=== PATIENT | female | born 1935 | race Two or more races ===

== ENCOUNTER 2019-06-09 07:45 | Inpatient (IN) | payer OTHER | END 2019-06-11 19:39 | disposition home or self-care (01) | LOC: ER 07:45 → TELE 07:46 → TELE-WESTW 11:48 | DX: R00.0 Tachycardia, unspecified (principal); N39.0 Urinary tract infection, site not specified; R53.1 Weakness; E11.9 Type 2 diabetes mellitus without complications; E78.5 Hyperlipidemia, unspecified ==

== ENCOUNTER → 2023-02-10 | Outpatient (CLI) | payer OTHER ==
[~2023-02-10] MED LIST: ASCO500T11 PO; ASPI-543 PO; CHOL20007 PO; CYAN100T7 PO; LISI2.5T47; METF-372; MULTLIQ36 OR; SIMV40TA2 PO
[2023-02-10 09:19] LABS: Basophils # (auto) 0.1 10 ^3/uL (0-0.2); Basophils % (auto) 0.9 % (0.0-2.0); Eosinophils # (auto) 0.3 10 ^3/uL (0-0.8); Hematocrit 37.5 % (36.0-46.0); Hemoglobin 12.3 g/dL (12.2-16.2); Lymphocytes # (auto) 2.3 10 ^3/uL (0.4-5.4); Lymphocytes % (auto) 41.4 % (10.0-50.0); Mean Corpuscular Hemoglobin 30.3 pg (28.0-32.0); Mean Corpuscular Hgb Conc. 32.9 g/dL (32.0-36.0); Mean Corpuscular Volume 92.1 fL (80.0-100.0); Monocytes # (auto) 0.4 10 ^3/uL (0-1.3); Monocytes % (auto) 6.7 % (0.0-12.0); Neutrophils # (auto) 2.6 10 ^3/uL (1.6-8.6); Nucleated Red Blood Cells % 0.1 %; Red Blood Cells 4.07 10^6/uL (4.0-5.20); Red Cell Distribution Width 14.7 % (11.8-14.3); White Blood Cell 5.6 10^3/uL (4.4-10.8)
[2023-02-10 09:25] LABS: Urine Bacteria NONE SEEN /hpf (None Seen); Urine Blood Negative /uL (Negative); Urine Specific Gravity 1.003 (1.001-1.035); Urine WBC <1 /hpf (0 - 5)
[2023-02-10 10:23] LABS: Albumin 4.3 g/dL (3.4-5.0); BUN/Creatinine Ratio 25.4 (10.0-20.0); Bilirubin, Total 0.4 mg/dL (0.2-1.0); Calcium 9.6 mg/dL (8.5-10.1); Total Protein 7.7 g/dL (6.4-8.2)
[2023-02-10 10:51] LABS: % Iron Saturation 21.8 % (15-50)
== END | disposition home or self-care (01) ==
LOC: LAB 08:52
PROVIDERS: ATTEND Family Medicine
DX: Z00.00 Encounter for general adult medical examination without abnormal findings (principal); E11.9 Type 2 diabetes mellitus without complications; N64.4 Mastodynia; M15.9 Polyosteoarthritis, unspecified
CPT/HCPCS: 36415; 80053; 80061; 81001; 82306; 82607; 83036; 83540; 83550; 84443; 84550; 85025; 87086

== ENCOUNTER → 2023-11-03 | Outpatient (CLI) | payer OTHER ==
[~2023-11-03] MED LIST changes: -SIMV40TA2 PO; +SIMV40TA42 PO
[2023-11-03 10:34] LABS: Basophils # (auto) 0 10 ^3/uL (0-0.2); Basophils % (auto) 0.5 % (0.0-2.0); Eosinophils # (auto) 0.3 10 ^3/uL (0-0.8); Eosinophils % (auto) 4.1 % (0.0-7.0); Hematocrit 36.2 % (36.0-46.0); Hemoglobin 12.1 g/dL (12.2-16.2); Lymphocytes # (auto) 1.9 10 ^3/uL (0.4-5.4); Lymphocytes % (auto) 30.6 % (10.0-50.0); Mean Corpuscular Hemoglobin 30.5 pg (28.0-32.0); Mean Corpuscular Hgb Conc. 33.5 g/dL (32.0-36.0); Mean Corpuscular Volume 91.1 fL (80.0-100.0); Monocytes # (auto) 0.5 10 ^3/uL (0-1.3); Monocytes % (auto) 7.4 % (0.0-12.0); Neutrophils # (auto) 3.6 10 ^3/uL (1.6-8.6); Neutrophils % (auto) 57.4 % (37.0-80.0); Red Blood Cells 3.97 10^6/uL (4.0-5.20); Red Cell Distribution Width 15.3 % (11.8-14.3); White Blood Cell 6.4 10^3/uL (4.4-10.8)
[2023-11-03 10:53] LABS: Urine Bacteria NONE SEEN /hpf (None Seen); Urine Blood Negative /uL (Negative); Urine Clarity Clear (Clear); Urine Color Straw (Yellow); Urine Protein, UAD Negative (Negative); Urine Specific Gravity 1.014 (1.001-1.035); Urine Urobilinogen Normal (Negative); Urine WBC 2 /hpf (0 - 5); Urine pH 5.5 (5.0-8.0)
[2023-11-03 10:59] LABS: Alanine Aminotransferase 17 U/L (7-40); Alkaline Phosphatase 54 U/L (46-116); Anion Gap 7 (5-15); BUN/Creatinine Ratio 14.3 (10.0-20.0); Blood Urea Nitrogen 11 mg/dL (9-23); Calcium 10.2 mg/dL (8.5-10.1); Carbon Dioxide 25 mmol/L (20-30); Chloride 103 mmol/L (98-107); Glucose 114 mg/dL (74-106); Potassium 4.4 mmol/L (3.5-5.1); Sodium 135 mmol/L (136-145); Triglycerides 302 mg/dL (< 150)
[2023-11-03 11:00] LABS: Albumin 4.8 g/dL (3.2-4.8); Aspartate Aminotransferase 22 U/L (13-40); LDL Cholesterol 114 mg/dL (< 100)
[2023-11-03 11:01] LABS: Bilirubin, Total 0.5 mg/dL (0.2-1.0); Cholesterol 200 mg/dL (< 200); Free T3 3.06 pg/mL (2.3-4.2); HDL Cholesterol 45 mg/dL (40-59); Total Protein 7.4 g/dL (5.7-8.2)
[2023-11-03 11:02] LABS: Folate (Folic Acid) > 24.00 ng/mL (>5.38); Free T4 (Free Thyroxine) 0.99 ng/dL (0.89-1.76); T3 Total 1.28 ng/mL (0.60-1.81)
[2023-11-03 11:17] LABS: Uric Acid 4.7 mg/dL (3.1-7.8)
[2023-11-03 12:41] LABS: % Iron Saturation 19.2 % (15-50)
== END | disposition home or self-care (01) ==
LOC: LAB 09:47
PROVIDERS: ATTEND Nurse Practitioner Acute Care
DX: E11.43 Type 2 diabetes mellitus with diabetic autonomic (poly)neuropathy (principal); I10 Essential (primary) hypertension; E11.9 Type 2 diabetes mellitus without complications; E78.2 Mixed hyperlipidemia; R23.8 Other skin changes
CPT/HCPCS: 36415; 80053; 80061; 81001; 82306; 82607; 82746; 83036; 83540; 83550; 84403; 84439; 84480; 84481; 84550; 85025

== ENCOUNTER → 2024-05-02 | Outpatient (CLI) | payer OTHER ==
[2024-05-02 08:36] LABS: Urine Bacteria FEW /hpf (None Seen); Urine Blood Negative /uL (Negative); Urine Clarity Clear (Clear); Urine Protein, UAD Negative (Negative); Urine Urobilinogen Normal (Negative); Urine WBC 2 /hpf (0 - 5)
[2024-05-02 08:38] LABS: Urine Color Light-Yellow (Yellow)
[2024-05-02 09:10] LABS: Anion Gap 8 (5-15); Carbon Dioxide 26 mmol/L (20-30); Chloride 100 mmol/L (98-107); Potassium 4.8 mmol/L (3.5-5.1); Sodium 134 mmol/L (136-145)
[2024-05-02 09:11] LABS: Calcium 9.6 mg/dL (8.7-10.4)
[2024-05-02 09:16] LABS: BUN/Creatinine Ratio 18.5 (10.0-20.0); Blood Urea Nitrogen 15 mg/dL (9-23); Glucose 129 mg/dL (74-106); Triglycerides 253 mg/dL (< 150)
[2024-05-02 09:17] LABS: LDL Cholesterol 36 mg/dL (< 100)
[2024-05-02 09:18] LABS: Cholesterol 102 mg/dL (< 200); HDL Cholesterol 37 mg/dL (40-59)
== END | disposition home or self-care (01) ==
LOC: LAB 08:14
PROVIDERS: ATTEND Family Medicine
DX: I10 Essential (primary) hypertension (principal); E11.9 Type 2 diabetes mellitus without complications; R39.89 Other symptoms and signs involving the genitourinary system
CPT/HCPCS: 36415; 80048; 80061; 81001; 83036; 87086

== ENCOUNTER → 2024-05-23 | Outpatient (CLI) | payer OTHER ==
[2024-05-23 12:39] LABS: Urine Bacteria None Seen /hpf (None Seen)
[2024-05-23 12:48] LABS: Urine Blood Negative /uL (Negative); Urine Clarity Clear (Clear); Urine Color Light-Yellow (Yellow); Urine Protein, UAD Negative (Negative); Urine Specific Gravity 1.027 (1.001-1.035); Urine Urobilinogen Normal (Negative); Urine WBC 71 /hpf (0 - 5); Urine pH 5.5 (5.0-9.0)
== END | disposition home or self-care (01) ==
LOC: LAB 12:28
PROVIDERS: ATTEND Urology
DX: N34.1 Nonspecific urethritis (principal)
CPT/HCPCS: 81001; 87086

== ENCOUNTER → 2024-10-04 | Outpatient (CLI) | payer OTHER ==
[2024-10-04 11:53] LABS: Basophils # (auto) 0.1 10 ^3/uL (0-0.2); Basophils % (auto) 0.8 % (0.0-2.0); Eosinophils # (auto) 0.5 10 ^3/uL (0-0.8); Eosinophils % (auto) 6.2 % (0.0-7.0); Hematocrit 38.5 % (36.0-46.0); Hemoglobin 12.9 g/dL (12.2-16.2); Lymphocytes # (auto) 2.8 10 ^3/uL (0.4-5.4); Lymphocytes % (auto) 36.5 % (10.0-50.0); Mean Corpuscular Hemoglobin 30.9 pg (28.0-32.0); Mean Corpuscular Hgb Conc. 33.4 g/dL (32.0-36.0); Mean Corpuscular Volume 92.5 fL (80.0-100.0); Monocytes # (auto) 0.4 10 ^3/uL (0-1.3); Monocytes % (auto) 5.7 % (0.0-12.0); Neutrophils # (auto) 3.9 10 ^3/uL (1.6-8.6); Neutrophils % (auto) 50.8 % (37.0-80.0); Platelet Count (auto) 229 10^3/uL (140-450); Red Blood Cells 4.16 10^6/uL (4.0-5.20); Red Cell Distribution Width 14.6 % (11.8-14.3); White Blood Cell 7.7 10^3/uL (4.4-10.8)
[2024-10-04 12:15] LABS: Alanine Aminotransferase 20 U/L (7-40); Alkaline Phosphatase 47 U/L (46-116); Anion Gap 7 (5-15); BUN/Creatinine Ratio 25.6 (10.0-20.0); Blood Urea Nitrogen 21 mg/dL (9-23); Carbon Dioxide 26 mmol/L (20-31); Chloride 103 mmol/L (98-107); Potassium 4.9 mmol/L (3.5-5.1); Sodium 136 mmol/L (136-145)
[2024-10-04 12:16] LABS: LDL Cholesterol 30 mg/dL (< 100)
[2024-10-04 12:17] LABS: Bilirubin, Total 0.5 mg/dL (0.2-1.0); Cholesterol 97 mg/dL (< 200); HDL Cholesterol 45 mg/dL (40-59); Total Protein 7.5 g/dL (5.7-8.2)
[2024-10-04 12:25] LABS: Aspartate Aminotransferase 11 U/L (13-40); Calcium 10.6 mg/dL (8.7-10.4); Glucose 110 mg/dL (74-106); Triglycerides 169 mg/dL (< 150)
[2024-10-04 12:57] LABS: Folate (Folic Acid) 26.16 ng/mL (>5.38)
[2024-10-06 13:09] LABS: Urine Bacteria None Seen /hpf (None Seen)
[2024-10-06 13:18] LABS: Urine Blood Negative /uL (Negative); Urine Clarity Clear (Clear); Urine Color Light-Yellow (Yellow); Urine Protein, UAD Negative (Negative); Urine Specific Gravity 1.026 (1.001-1.035); Urine Squamous Epithelial Cell FEW /hpf (<5); Urine Urobilinogen Normal (Negative); Urine WBC 2 /hpf (0 - 5)
== END | disposition home or self-care (01) ==
LOC: LAB 11:04
PROVIDERS: ATTEND Internal Medicine
DX: E61.2 Magnesium deficiency (principal); E79.0 Hyperuricemia without signs of inflammatory arthritis and tophaceous disease; D51.9 Vitamin B12 deficiency anemia, unspecified; E55.9 Vitamin D deficiency, unspecified; E78.9 Disorder of lipoprotein metabolism, unspecified; R94.6 Abnormal results of thyroid function studies; R73.09 Other abnormal glucose; R68.89 Other general symptoms and signs; R82.91 Other chromoabnormalities of urine; R82.79 Other abnormal findings on microbiological examination of urine; R82.90 Unspecified abnormal findings in urine
CPT/HCPCS: 36415; 80053; 80061; 81001; 82306; 82607; 82746; 83036; 84443; 84484; 85025; 87086

== ENCOUNTER → 2025-01-31 | Outpatient (CLI) | payer OTHER ==
[2025-01-31 07:29] LABS: Basophils # (auto) 0.1 10 ^3/uL (0-0.2); Basophils % (auto) 0.7 % (0.0-2.0); Eosinophils # (auto) 0.6 10 ^3/uL (0-0.8); Eosinophils % (auto) 7.4 % (0.0-7.0); Hematocrit 36.8 % (36.0-46.0); Hemoglobin 12.1 g/dL (12.2-16.2); Lymphocytes # (auto) 2.2 10 ^3/uL (0.4-5.4); Lymphocytes % (auto) 29.4 % (10.0-50.0); Mean Corpuscular Hemoglobin 29.9 pg (28.0-32.0); Mean Corpuscular Volume 90.7 fL (80.0-100.0); Monocytes # (auto) 0.6 10 ^3/uL (0-1.3); Monocytes % (auto) 8.4 % (0.0-12.0); Neutrophils # (auto) 4.1 10 ^3/uL (1.6-8.6); Neutrophils % (auto) 54.1 % (37.0-80.0); Nucleated Red Blood Cells % 0.1 %; Platelet Count (auto) 232 10^3/uL (140-450); Red Blood Cells 4.06 10^6/uL (4.0-5.20); Red Cell Distribution Width 14.8 % (11.8-14.3); White Blood Cell 7.5 10^3/uL (4.4-10.8)
[2025-01-31 07:43] LABS: Urine Blood Negative /uL (Negative); Urine Clarity Turbid (Clear); Urine Color Colorless (Yellow); Urine Protein, UAD TRACE (Negative); Urine Specific Gravity 1.016 (1.001-1.035); Urine Urobilinogen Normal (Negative); Urine pH 5.5 (5.0-9.0)
[2025-01-31 08:02] LABS: Alanine Aminotransferase 22 U/L (7-40); Anion Gap 8 (5-15); Aspartate Aminotransferase 16 U/L (13-40); Bilirubin, Total 0.5 mg/dL (0.2-1.0); Carbon Dioxide 26 mmol/L (20-31); Chloride 100 mmol/L (98-107); Cholesterol 118 mg/dL (< 200); LDL Cholesterol 46 mg/dL (< 100); Potassium 5.1 mmol/L (3.5-5.1); Total Protein 7.3 g/dL (5.7-8.2)
[2025-01-31 08:04] LABS: Albumin 4.9 g/dL (3.2-4.8); Alkaline Phosphatase 46 U/L (46-116); Blood Urea Nitrogen 27 mg/dL (9-23); Calcium 10.5 mg/dL (8.7-10.4); Glucose 128 mg/dL (74-106); HDL Cholesterol 39 mg/dL (40-59); Sodium 134 mmol/L (136-145); Triglycerides 235 mg/dL (< 150)
[2025-01-31 08:38] LABS: Uric Acid 5.4 mg/dL (3.1-7.8)
== END | disposition home or self-care (01) ==
LOC: LAB 07:09
PROVIDERS: ATTEND Internal Medicine
DX: I12.9 Hypertensive chronic kidney disease with stage 1 through stage 4 chronic kidney disease, or unspecified chronic kidney disease (principal); E11.22 Type 2 diabetes mellitus with diabetic chronic kidney disease; N18.31 Chronic kidney disease, stage 3a; G89.29 Other chronic pain
CPT/HCPCS: 36415; 80053; 80061; 81003; 82306; 82607; 83036; 83735; 84443; 84550; 85025; 87086

== ENCOUNTER 2025-05-10 19:49 | Inpatient (IN) | payer OTHER ==
[~2025-05-10] VITALS: Ht 162.6 cm; Wt 55.8 kg
[2025-05-10] MEDS ORDERED: ROCURONIUM 10MG/ML 10ML VIAL IV ONE (20:00)
[2025-05-10] MEDS: ALBUTEROL SULF 2.5 MG/0.5ML(0.5%) NEB SOLN NEB ONE ×2 (20:00→21:17)
[2025-05-10] MEDS: ETOMIDATE (2MG/ML) 20ML VIAL IV ONE ×2 (20:12→20:20)
[2025-05-10] MEDS ORDERED: PROPOFOL 100 ML IV SCH (20:15)
[2025-05-10] MEDS ORDERED: SUCCINYLCHOLINE CHLORIDE 20 MG/ML 10ML VIAL IV ONE (20:15)
--- NOTE | 2025-05-10 20:17 | ED.PDOC ---
HPI Allergic reaction HPI Comments 89-year-old female with a history of UTIs, diabetes, and hyperlipidemia who is brought in by emergency services with a chief reaction of a allergic reaction, with the associated angioedema, and respiratory distress. Patient's symptoms started 30 minutes before arrival to the ED with she had took her UTI antibiot ics, known as cefuroxime Patient is noted to be alert and oriented x4, but is struggling to respond to questions due to tongue swelling, and is currently set at on 4 L O2. Emergency services notes on administering 25 mg of Benadryl IV, with no alleviating factors. Patient denies any pain, nausea, vomiting, diarrhea, headache, blurry vision, or any other associated symptoms modifying was at this time. PHYSICAL EXAM: General: Awake, alert and oriented. No acute distress. Skin: Skin in warm, dry and intact. Appropriate color for ethnicity. HEENT: The head is normocephalic and atraumatic. Conjunctivae are clear without exudates or hemorrhage. Sclera is non-icteric. EOM are intact. No signs of nystagmus. Eyelids are normal in appearance without swelling or lesions. + Tongue swelling. Neck: The neck is supple with normal range of motion. No JVD. Cardiac: Rapid rate, regular rhythm normal. No murmurs, gallops, or rubs are auscultated. Respiratory: No wheeezing or rhonci. No stridor. +tachypnea Abdominal: Abdomen is soft, non-tender without distention, guarding or rigidity. Bowel sounds are present and normoactive in all four quadrants. Extremities: Upper and lower extremities are atraumatic in appearance without deformity or edema. Neurological: The patient is awake, alert and oriented to person, place, and time with normal speech. Speech is clear. There is no facial asymmetry. Skin: hives and swelling of upper and lower extremities REVIEW OF SYSTEMS: General: No fever, no chills, or fatigue HEENT: + difficulty swallowing & tongue swelling Cardiac: No chest pain. No palpitations. Lungs: + shortness of breath, no cough. GI: No nausea, no vomiting, no diarrhea, no constipation, no abdominal pain : No dysuria, frequency, or urgency. No hematuria. Musculoskeletal: No joint pain , no joint swelling, no extremity edema. Skin: + rash, + itching. Neuro: No headache, no dizziness, no weakness Time Seen by MD: 20:10 Primary Care Provider: SEBASTIEN Moya Notes: Nurses Notes, Manager Utilization Review Notes, Medications, Allergies Allergies: Coded Allergies: Nitrofurantoin (Verified Allergy, Unknown, 12/24/23) Home Meds Reported Medications Ascorbic Acid (VITAMIN C TABLET) 500 Mg Tb, 1 TAB PO DAILY, #30 TAB 3 Refills 06/09/19 Cyanocobalamin (Vitamin B12) 100 Mcg Tab, 100 MCG PO, TAB 06/09/19 Cholecalciferol (VITAMIN D3) 2,000 Unit Tab, 1 TAB PO DAILY, #30 TAB 5 Refills 06/09/19 Multiple Vitamins W/ Minerals (MULTIVITAMIN) Liq, 1 OR, LIQ 06/09/19 Aspirin (Aspir-Low) 81 Mg Tab, 81 MG PO DAILY for 30 Days, MG 06/09/19 Simvastatin (Zocor) 40 Mg Tab, 1 TAB PO DAILY, #90 TAB 1 Refill 06/09/19 Lisinopril (Lisinopril) 2.5 Mg Tab 06/09/19 Metformin Hydrochloride (Metformin Hcl) 1,000 Mg Tab 06/09/19 Information Source: Patient, Emergency Med Personnel Mode of Arrival: EMS Severity: Severe Rash: Mild SOB: Moderate Difficulty swallowing: Severe Pruritus: Mild Timing: Minutes Duration: Since onset, Minutes Prehospital treatment: 12 Lead EKG, Accucheck, Breathing Tx, Design Leader, Oxygen, Pain Meds Location: Face Exposed to: Medication Developed: Difficult Swallowing, Shortness of Breath, Throat Swelliing History of: None Modyifying Factors: None Associated Sign and Symptoms: None Past Medical History PAST MEDICAL HISTORY: DM, High Lipids, UTI'S Surgical History: Denies all surgeries PROTOTYPE SEWER History: Denies all PROTOTYPE SEWER Hx Family History Family History: Reviewed,noncontributory to illness Social History Smoker: Non-Smoker Alcohol: Denies ETOH Use Drugs: Denies Drug Use Lives In: Home Was a procedure done? 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 Indication: Hypotension Room prepared for procedure: Yes Set Up Operator Tool performed hand hygien: Yes Maximal sterile barrier precau: Mask/Eye shield, Sterile gown, Cap, Sterlie gloves, Large sterlie drape Skin Preparation: Chlorhexidine gluconate Skin preparation completely dr: Yes Insertion site: Right, Internal jugular Central line catheter type: Xpu-[id number]-bcb dialysis Number of lumens: 3 Central line exchanged over a: Yes Antiseptic ointment applied to: Yes Post Assessment: Proper placement, No Pneumothorax Informed consent obtained: Yes Risks/benefits/alt described: Yes Intubation Indication: Respiratory Insufficiency, Airway Protection Prep: Preoxygenation Pretreated with: Nothing Medicated with: Other (100 mg of rock, 30 mg of etomidate) Intubation Approach: Orotracheal Intubation size: cm (6.5 cm) Informed consent obtained: Yes Risks/benefits/alt described: Yes UTO Consent Consent was obtained by . Differential diagnosis (all) Differential Diagnosis: Anaphylaxis, Bronchospasm, Drug Reaction, Hypotension, Respiratory Failure, Shock X-Ray, Labs, Meds, VS Vital Signs Date Time Temp Pulse Resp B/P (MAP) Pulse Ox O2 Delivery O2 Flow Rate FiO2 05/10/25 22:15 79 20 94/41 (58) 100 05/10/25 22:05 81/34 05/10/25 22:04 72 16 97 05/10/25 22:00 79 20 80/32 (48) 100 05/10/25 22:00 80/32 05/10/25 21:45 71 20 69/25 (40) 99 05/10/25 21:30 100 Mechanical Ventilator+ 100 100 05/10/25 21:30 72 15 69/28 (42) 99 05/10/25 21:22 71 16 78/33 (48) 96 05/10/25 21:13 16 83/36 (52) 97 100 05/10/25 21:13 72 83/36 (52) 97 100 05/10/25 21:05 163/58 05/10/25 21:05 163/58 05/10/25 21:05 91 14 163/58 (93) 99 05/10/25 21:01 90 05/10/25 20:55 162/68 05/10/25 20:50 109 20 162/68 (99) 86 05/10/25 20:50 162/68 05/10/25 20:45 162/68 05/10/25 20:45 109 20 162/68 (99) 86 05/10/25 20:30 102 14 154/76 (102) 98 05/10/25 20:26 98.2 140 20 107/69 95 98.2 05/10/25 20:25 117 21 143/74 (97) 98 05/10/25 20:21 143/74 05/10/25 20:15 129 21 133/67 (89) 96 05/10/25 20:05 124 21 143/90 (107) 97 Lab Test 05/10/25 21:15 05/10/25 20:29 Range/Units Blood Gas Specimen Type Arterial Blood Gas Sample Site Right radial Blood Gas Patient Temperature 37.0 Arterial Blood Date Drawn [id number] Arterial Blood pH 7.200 *L 7.350-7.450 Arterial Blood Partial Pressure CO2 46.7 H 32.0-45.0 mmHg Arterial Blood Partial Pressure O2 94.8 83.0-108.0 mmHg Arterial Blood HCO3 17.8 L 21.0-28.0 mmol/L Arterial Blood Oxygen Saturation 94.7 94.0-98.0 % Arterial Blood Base Excess -9.9 L -2.0-3.0 mmol/L Arterial Blood Oxyhemoglobin 93.6 L 94.0-98.0 % Arterial Blood Carboxyhemoglobin 0.4 L 0.5-1.5 % Arterial Blood Methemoglobin 0.8 0.0-1.5 % Laron Test Positive Blood Gas Total Hemoglobin 11.60 L 12.0-16.0 g/dL Blood Gas Set Respiration Rate 16.0 Blood Gas Modality Vent - ac FiO2 % 100.0 Blood Gas Tidal Volume 400.0 Blood Gas PEEP or CPAP 5.0 Blood Gas Critical Value Read Back yes Blood Gas Notified Whom jocelyne Horner md Blood Gas Notified Time [id number] Blood Gas Notified By Floyd zavala White Blood Count 14.8 H 4.4-10.8 10^3/uL Red Blood Count 4.26 4.0-5.20 10^6/uL Hemoglobin 12.9 12.2-16.2 g/dL Hematocrit 40.2 36.0-46.0 % Mean Corpuscular Volume 94.4 80.0-100.0 fL Mean Corpuscular Hemoglobin 30.2 28.0-32.0 pg Mean Corpuscular Hemoglobin Concent 32.0 32.0-36.0 g/dL Red Cell Distribution Width 15.4 H 11.8-14.3 % Platelet Count 348 140-450 10^3/uL Mean Platelet Volume 7.5 6.9-10.8 fL Neutrophils (%) (Auto) 37.0-80.0 % Lymphocytes (%) (Auto) 10.0-50.0 % Monocytes (%) (Auto) 0.0-12.0 % Basophils (%) (Auto) 0.0-2.0 % Neutrophils # (Auto) 1.6-8.6 10 ^3/uL Lymphocytes # (Auto) 0.4-5.4 10 ^3/uL Monocytes # (Auto) 0-1.3 10 ^3/uL Differential Total Cells Counted 100.0 100 Neutrophils % (Manual) 30 L 37.0-80.0 Band Neutrophils % (Manual) 1 Lymphocytes % (Manual) 60 H 10.0-50.0 Monocytes % (Manual) 9 0-12 Eosinophils % (Manual) 0 0-7 Basophils % (Manual) 0 0.0-2.0 Metamyelocytes % (manual) 0 Myelocytes % (Manual) 0 Promyelocytes % (Manual) 0 Blast Cells % (Manual) 0 Reactive Lymphocytes 0 Platelet Estimate Adequate Red Blood Cell Morphology Normal Sodium Level 138 136-145 mmol/L Potassium Level 4.8 3.5-5.1 mmol/L Chloride Level 105 98-107 mmol/L Carbon Dioxide Level 21 20-31 mmol/L Anion Gap 12 5-15 Blood Urea Nitrogen 16 9-23 mg/dL Creatinine 1.03 H 0.550-1.02 mg/dL Glomerular Filtration Rate Calc 52 >90 mL/min BUN/Creatinine Ratio 15.5 10.0-20.0 Serum Glucose 237 H 74-106 mg/dL Hemoglobin A1c 7.3 H <5.7 % A1C Calcium Level 8.8 8.7-10.4 mg/dL B-Type Natriuretic Peptide 18.11 0-100 pg/mL Current Medications Medications (Trade) Dose Ordered Sig/Jonathan Route Start Time Stop Time Status Last Admin Dexamethasone Sodium Phosphate (Decadron Injection) 10 mg ONCE ONCE IV 05/10/25 20:00 05/10/25 20:01 DC 05/10/25 20:00 Epinephrine HCl 0.3 mg ONCE ONCE IM 05/10/25 20:00 05/10/25 20:01 DC 05/10/25 20:00 Famotidine (Pepcid Injection) 20 mg ONCE ONCE IV 05/10/25 20:00 05/10/25 20:01 DC 05/10/25 21:21 Albuterol (Ventolin Medneb) 2.5 mg ONCE ONCE NEB 05/10/25 20:00 05/10/25 20:01 DC 05/10/25 21:17 Etomidate 20 mg ONCE ONCE IV 05/10/25 20:00 05/10/25 20:01 DC 05/10/25 20:12 Rocuronium Lee 100 mg ONCE ONCE IV 05/10/25 20:15 05/10/25 20:16 DC 05/10/25 20:21 Etomidate 10 mg ONCE ONCE IV 05/10/25 20:30 05/10/25 20:31 DC 05/10/25 20:20 Sodium Chloride 1,000 ml @ 1,000 mls/hr Q1H ONCE IV 05/10/25 20:45 05/10/25 21:44 DC 05/10/25 20:47 Propofol 100 ml @ 2.177 mls/ hr Q24H IV 05/10/25 20:45 05/10/25 20:45 Fentanyl Citrate 250 ml @ 2.5 mls/hr Q24H IV 05/10/25 21:00 05/10/25 20:50 Sodium Chloride 1,000 ml @ 1,000 mls/hr Q1H ONCE IV 05/10/25 21:00 05/10/25 21:59 DC 05/10/25 21:52 Ondansetron HCl (Zofran) 4 mg ONCE ONCE IV 05/10/25 21:00 05/10/25 21:01 DC 05/10/25 21:00 Methylprednisolone Sodium Succinate (Solu Medrol) 62.5 mg ONCE ONCE IV 05/10/25 21:15 05/10/25 21:16 DC 05/10/25 21:22 Epinephrine HCl 0.3 mg ONCE ONCE IM 05/10/25 21:15 05/10/25 21:16 DC 05/10/25 21:19 Diphenhydramine HCl (Benadryl Injection) 25 mg ONCE ONCE IV 05/10/25 21:15 05/10/25 21:16 DC 05/10/25 21:21 Midazolam HCl 50 ml @ 1 mls/hr Q24H IV 05/10/25 22:00 05/11/25 01:54 Epinephrine HCl 250 ml @ 7.5 mls/hr Q24H ONCE IV 05/10/25 22:00 05/11/25 21:59 05/10/25 22:45 PATIENT: ADRIAN BAH ACCT: [id number] UNIT: [id number] : 1935 LOC: ER ROOM / BED: / AGE / SEX: 89 / F ADM STATUS: REG ER SERVICE 31 ORDERING PHYSICIAN: JOCELYNE HORNER MD PROCEDURE(s): CXR1 - CHEST XRAY 1 VIEW REASON: ett placement ORDER NUMBER(s): [id number], ACCESSION NUMBER(s): [id number] CHEST RADIOGRAPH Indication: ett placement Technique: Single frontal view of the chest was obtained Comparison: XY CHEST XRAY 1 VIEW on DOS: 12/24/23 FINDINGS: Lines and Tubes: Endotracheal tube appears to be in the right mainstem bronchus recommend withdrawal 1-2 cm. Lungs: No focal consolidation. Pleura: No effusion. No pneumothorax. Cardiomediastinal contours: Unremarkable Bones: No acute osseous abnormality. IMPRESSION: 1. Cardiomegaly and mild pulmonary vascular markings may represent congestive failure. 2. Endotracheal tube is in the right mainstem bronchus recommend withdrawal 2-3 cm. Time of 1ST Reevaluation: 08:41 Reevaluation 1ST: Unchanged Patient Education/Counseling: Diagnosis, Treatment, Need For Follow Up Family Education/Counseling: No Family Present SEPSIS Sepsis Screen Physician Orders Rass Sedation Scale Q1HR (05/10/25 20:12) Communication Order (05/10/25 20:25) Abg W/ Co-Ox (05/10/25 20:30) Respiratory Culture W/ Gs (05/10/25 20:30) Chest Xray 1 View (05/10/25 20:32) Propofol (Diprivan) (05/10/25 20:45) Fentanyl Drip 2500mcg/250mlns (05/10/25 21:00) Communication Order (05/10/25 20:50) Chest Xray 1 View (05/10/25 20:52) Communication Order (05/10/25 20:54) Communication Order (05/10/25 21:05) Communication Order (05/10/25 21:43) Midazolam Drip 50 Mg/50ml (Versed Drip 5 (05/10/25 22:00) Communication Order (05/10/25 21:49) Epinephrine Hcl (05/10/25 22:00) Ventilator Setup (05/10/25 22:22) Vital Signs Date Time Temp Pulse Resp B/P (MAP) Pulse Ox O2 Delivery O2 Flow Rate FiO2 05/10/25 22:15 79 20 94/41 (58) 100 05/10/25 22:05 81/34 05/10/25 22:04 72 16 97 05/10/25 22:00 79 20 80/32 (48) 100 05/10/25 22:00 80/32 05/10/25 21:45 71 20 69/25 (40) 99 05/10/25 21:30 100 Mechanical Ventilator+ 100 100 05/10/25 21:30 72 15 69/28 (42) 99 05/10/25 21:22 71 16 78/33 (48) 96 05/10/25 21:13 16 83/36 (52) 97 100 05/10/25 21:13 72 83/36 (52) 97 100 05/10/25 21:05 163/58 05/10/25 21:05 163/58 05/10/25 21:05 91 14 163/58 (93) 99 05/10/25 21:01 90 05/10/25 20:55 162/68 05/10/25 20:50 109 20 162/68 (99) 86 05/10/25 20:50 162/68 05/10/25 20:45 162/68 05/10/25 20:45 109 20 162/68 (99) 86 05/10/25 20:30 102 14 154/76 (102) 98 05/10/25 20:26 98.2 140 20 107/69 95 98.2 05/10/25 20:25 117 21 143/74 (97) 98 05/10/25 20:21 143/74 05/10/25 20:15 129 21 133/67 (89) 96 05/10/25 20:05 124 21 143/90 (107) 97 Laboratory Tests Test 05/10/25 20:29 White Blood Count 14.8 10^3/uL (4.4-10.8) H Medications Medications Dose Ordered Sig/Jonathan Route Start Time Stop Time Status Last Admin Dose Admin Albuterol 2.5 mg ONCE ONCE NEB 05/10/25 20:00 05/10/25 20:01 DC 05/10/25 21:17 Dexamethasone Sodium Phosphate 10 mg ONCE ONCE IV 05/10/25 20:00 05/10/25 20:01 MD 05/10/25 20:00 Diphenhydramine HCl 25 mg ONCE ONCE IV 05/10/25 21:15 05/10/25 21:16 DC 05/10/25 21:21 Epinephrine HCl 0.3 mg ONCE ONCE IM 05/10/25 20:00 05/10/25 20:01 MD 05/10/25 20:00 Epinephrine HCl 0.3 mg ONCE ONCE IM 05/10/25 21:15 05/10/25 21:16 MD 05/10/25 21:19 Epinephrine HCl 250 ml @ 7.5 mls/hr Q24H ONCE IV 05/10/25 22:00 05/11/25 21:59 05/10/25 22:45 Etomidate 10 mg ONCE ONCE IV 05/10/25 20:30 05/10/25 20:31 MD 05/10/25 20:20 Etomidate 20 mg ONCE ONCE IV 05/10/25 20:00 05/10/25 20:01 MD 05/10/25 20:12 Famotidine 20 mg ONCE ONCE IV 05/10/25 20:00 05/10/25 20:01 MD 05/10/25 21:21 Fentanyl Citrate 250 ml @ 2.5 mls/hr Q24H IV 05/10/25 21:00 05/10/25 20:50 Methylprednisolone Sodium Succinate 62.5 mg ONCE ONCE IV 05/10/25 21:15 05/10/25 21:16 MD 05/10/25 21:22 Midazolam HCl 50 ml @ 1 mls/hr Q24H IV 05/10/25 22:00 05/11/25 01:54 Ondansetron HCl 4 mg ONCE ONCE IV 05/10/25 21:00 05/10/25 21:01 MD 05/10/25 21:00 Propofol 100 ml @ 2.177 mls/ hr Q24H IV 05/10/25 20:45 05/10/25 20:45 Rocuronium Lee 100 mg ONCE ONCE IV 05/10/25 20:15 05/10/25 20:16 DC 05/10/25 20:21 Sodium Chloride 1,000 ml @ 1,000 mls/hr Q1H ONCE IV 05/10/25 20:45 05/10/25 21:44 DC 05/10/25 20:47 Sodium Chloride 1,000 ml @ 1,000 mls/hr Q1H ONCE IV 05/10/25 21:00 05/10/25 21:59 DC 05/10/25 21:52 Departure 1 Departure Time of Disposition: 01:46 Impression: Primary Impression: Anaphylactic shock Disposition: ADMITTED INPATIENT Condition: Critical Comments MDM: 89 year old female with allergic reaction vs angioedema. Patient was given epinephrine and Decadron on arrival to the ED. Emergent intubation was performed due to concern for worsening airway edema. Intubation was difficult due to severe airway edema. Initially 6.5 ETT was placed which was then exchanged over Bougie for 7.0 ETT. Patient became progressively hypotensive. She was started on epinephrine drip for pressure support and central line was placed in the ED. Extensive evaluation was performed in attempt to identify or rule out: (See differential diagnosis section) The following tests were ordered, and results were reviewed by me and discussed with patient: (See diagnostic results section) The following test were independently interpreted by me: N/A I reviewed and agreed with the following test results read by other providers: Chest x-ray I reviewed the following notes from the pt's past medical encounters: N/A Additional information was gathered from interviewing the following independent historians: EMS personnel, patient's daughter at bedside Discussion of management or test interpretation with external physician/other qualified health hospice care sales consultant: Royer Bhagat NP Addressed an acute or chronic illness that poses a threat to life or bodily function: Anaphylactic shock Decision regarding hospitalization or escalation of hospital level of care: Risk and benefits of admission for further treatment of patient's condition was considered. Due to patient's current clinical condition, high risk of decline and poor outcome if discharged and need for further inpatient management and monitoring, patient will be admitted to the hospital. Drug therapy requiring intensive monitoring for toxicity: IM epinephrine IV dexamethasone, IV solumedrol, IV diphenhydramine Parenteral controlled substances: IV etomidate, IV rocuronium, IV propofol, IV versed, IV fentanyl Decision regarding elective major surgery with identified patient or procedure risk factors: N/A Decision regarding emergency major surgery: N/A Decision not to resuscitate or to de-escalate care because of poor prognosis: N/A Diagnosis or treatment significantly limited by social determinants of health: N/A Critical Care Note Critical Care Time?: Yes (90 min-critical care time only) Critical care comment: Due to a high probability of clinically significant, life threatening deterioration, the patient required my highest level of preparedness to intervene emergently and I personally spent this critical care time directly and personally managing the patient. This critical care time included obtaining a history; examining the patient; pulse oximetry; ordering and review of studies; arranging urgent treatment with development of a management plan; evaluation of patient's response to treatment; frequent reassessment; and, discussions with other providers. This critical care time was performed to assess and manage the high probability of imminent, life-threatening deterioration that could result in multi-organ failure. It was exclusive of separately billable procedures and treating other patients and teaching time. Please see my other sections and the rest of the note for further information on patient assessment and treatment. Stability Stability form required: No Heart Score Heart Score: Heart Score Response (Comments) Value History N/A 0 EKG N/A 0 Age N/A 0 Risk Factors N/A 0 Troponin N/A 0 Total 0 I personally scribed for JOCELYNE HORNER MD ([email or web address]) on 05/10/25 at 20:17. Electronically submitted by Hi Gonzalez ([email or web address]). I personally scribed for JOCELYNE HORNER MD ([email or web address]) on 05/10/25 at 20:32. Electronically submitted by Hi Gonzalez ([email or web address]). I personally scribed for JOCELYNE HORNER MD ([email or web address]) on 05/10/25 at 20:56. Electronically submitted by Hi Gonzalez ([email or web address]). I personally scribed for JOCELYNE HORNER MD ([email or web address]) on 05/10/25 at 21:40. Electronically submitted by Hi Gonzalez ([email or web address]). I personally scribed for JOCELYNE HORNER MD ([email or web address]) on 05/10/25 at 21:45. Electronically submitted by Hi Gonzalez ([email or web address]). I personally scribed for JOCELYNE HORNER MD ([email or web address]) on 05/11/25 at 00:24. Electronically submitted by Hi Gonzalez ([email or web address]). JOCELYNE HORNER MD May 10, 2025 20:17
[2025-05-10] MEDS: ROCURONIUM 10MG/ML 10ML VIAL IV ONE (20:21)
[2025-05-10] MEDS: PROPOFOL 100 ML IV ONE (20:27)
[2025-05-10] MEDS: PROPOFOL 100 ML IV SCH (20:45)
[2025-05-10 20:46] LABS: Hematocrit 40.2 % (36.0-46.0); Hemoglobin 12.9 g/dL (12.2-16.2); Mean Corpuscular Hemoglobin 30.2 pg (28.0-32.0); Mean Corpuscular Volume 94.4 fL (80.0-100.0)
[2025-05-10] MEDS: SODIUM CHLORIDE 0.9% 1,000 ML IV ONE ×2 (20:47→21:52)
[2025-05-10] MEDS: fentaNYL Drip 2500mCg/250mlNS 250 ML IV SCH (20:50)
[2025-05-10 20:57] LABS: Chloride 105 mmol/L (98-107); Potassium 4.8 mmol/L (3.5-5.1); Sodium 138 mmol/L (136-145)
[2025-05-10 20:58] LABS: Anion Gap 12 (5-15); Carbon Dioxide 21 mmol/L (20-31)
[2025-05-10 20:59] LABS: Calcium 8.8 mg/dL (8.7-10.4)
[2025-05-10] MEDS: ONDANSETRON HCL 4 MG/2 ML VIAL IV ONE (21:00)
[2025-05-10 21:04] LABS: BUN/Creatinine Ratio 15.5 (10.0-20.0); Blood Urea Nitrogen 16 mg/dL (9-23)
[2025-05-10] MEDS: fentaNYL Drip 2500mCg/250mlNS 250 ML IV ONE (21:07)
--- NOTE | 2025-05-10 21:08 | DVH ---
CHEST RADIOGRAPH Indication: ett placement Technique: Single frontal view of the chest was obtained Comparison: XY CHEST XRAY 1 VIEW on DOS: 12/24/23 FINDINGS: Lines and Tubes: Endotracheal tube appears to be in the right mainstem bronchus recommend withdrawal 1-2 cm. Lungs: No focal consolidation. Pleura: No effusion. No pneumothorax. Cardiomediastinal contours: Unremarkable Bones: No acute osseous abnormality. IMPRESSION: 1. Cardiomegaly and mild pulmonary vascular markings may represent congestive failure. 2. Endotracheal tube is in the right mainstem bronchus recommend withdrawal 2-3 cm.
[2025-05-10 21:13] VITALS: BP 83/36; PULSE 72; O2SAT 97
[2025-05-10] MEDS: FAMOTIDINE (10MG/ML) 2ML VL IV ONE (21:21)
[2025-05-10] MEDS: diphenhdrAMINE HCL 50 MG/1 ML VL IV ONE (21:21)
[2025-05-10] MEDS: methylPREDNISolone SOD SUCC 125 MG/2 ML VL IV ONE (21:22)
[2025-05-10 21:30] VITALS: O2SAT 100
[2025-05-10 21:31] LABS: Glucose 237 mg/dL (74-106)
[2025-05-10 21:34] LABS: Base Excess -9.9 mmol/L (-2.0-3.0)
--- NOTE | 2025-05-10 21:39 | DVH ---
CHEST RADIOGRAPH Indication: S/P INTUBATION Technique: Single frontal view of the chest was obtained Comparison: XY CHEST XRAY 1 VIEW on DOS: 05/10/25, XY CHEST XRAY 1 VIEW on DOS: 12/24/23 FINDINGS: Lines and Tubes: Endotracheal tube in place 2.7 cm above the nima. Enteric tube is noted below the left diaphragm in the stomach. Lungs: No focal consolidation. Pleura: No effusion. No pneumothorax. Cardiomediastinal contours: Unremarkable Bones: No acute osseous abnormality. IMPRESSION: 1. Endotracheal tube 2.7 cm above the nima. 2. Enteric tube below the left diaphragm in the stomach. 3. Cardiopulmonary findings are stable.
[2025-05-10] MEDS: MIDAZOLAM DRIP 50 mg/50mL 50 ML IV ONE (21:52)
[2025-05-10] MEDS: MIDAZOLAM DRIP 50 mg/50mL 50 ML IV SCH (22:00)
[2025-05-10 22:04] VITALS: PULSE 72; RESP 16; O2SAT 97
[2025-05-10 22:30] LABS: RBC Morphology Normal; Total Cells Counted 100.0 (100)
[2025-05-10] MEDS: SODIUM CHLORIDE 0.9% 500 ML IV ONE (22:30)
[2025-05-10] MEDS ORDERED: ACETAMINOPHEN 325 MG TAB PO PRN (22:30)
[2025-05-10] MEDS ORDERED: MORPHINE SULFATE INJ 2 MG/ml SYRG IV PRN (22:30)
[2025-05-10] MEDS ORDERED: NITROGLYCERIN 0.4 MG SL TAB SL PRN (22:30)
[2025-05-10] MEDS: EPINEPHrine HCL 250 ML IV ONE (22:45)
--- NOTE | 2025-05-10 22:50 | DVHHP2 ---
History of Present Illness Reason for Visit: Allergic reaction History of Present Illness 89-year-old female presents for evaluation of allergic reaction. Patient is currently sedated and intubated. Patient presented with complaints of tongue swelling and difficulty breathing after taking an antibiotic that was prescribed to her yesterday. Patient was emergently intubated for airway protection. Past Medical History Dyslipidemia, diabetes mellitus and UTIs Past Surgical History Unknown Family History Unknown Smoke: No ALCOHOL: none Drugs: None Lives: with Family Review of Systems Review of Systems Unable to complete review of systems. Patient is sedated and intubated. Allergies: Coded Allergies: Nitrofurantoin (Verified Allergy, Unknown, 12/24/23) Medications Current Medications Medications Dose Ordered Sig/Jonathan Route Start Time Stop Time Status Last Admin Dose Admin Propofol 100 ml @ 2.177 mls/ hr Q24H IV 05/10/25 20:45 05/10/25 20:45 2.177 MLS/HR Fentanyl Citrate 250 ml @ 2.5 mls/hr Q24H IV 05/10/25 21:00 05/10/25 20:50 2.5 MLS/HR Midazolam HCl 50 ml @ 1 mls/hr Q24H IV 05/10/25 22:00 05/10/25 22:00 5 MLS/HR Norepinephrine Bitartrate 250 ml @ 3.75 mls/hr Q24H IV 05/10/25 22:30 Famotidine 20 mg Q12HR IV 05/11/25 10:00 Ondansetron HCl 4 mg Q4HP PRN IV 05/10/25 22:30 Enoxaparin Sodium 40 mg DAILY SC 05/11/25 10:00 Acetaminophen 650 mg Q6HP PRN PO 05/10/25 22:30 Nitroglycerin 0.4 mg Q5MINP PRN SL 05/10/25 22:30 Morphine Sulfate 2 mg Q30M PRN IV 05/10/25 22:30 Exam Vital Signs Vital Signs Date Time Temp Pulse Resp B/P (MAP) Pulse Ox O2 Delivery O2 Flow Rate FiO2 05/10/25 22:04 72 16 97 05/10/25 22:00 80/32 05/10/25 21:13 100 05/10/25 20:26 98.2 98.2 Exam Gen: 89-year-old female in no apparent distress Skin: Warm, dry, normal color and texture, generalized hives HEENT: Normocephalic atraumatic, mucous membranes moist and pink. Neck: Cervical and supraclavicular nodes normal without enlargement, trachea is midline, thyroid gland is normal without masses. Pulmonary: Clear to auscultation and percussion bilaterally. Cardiac: Regular rate and rhythm. No murmur Abdomen: Soft, nontender, nondistended, bowel sounds present all 4 quadrants, no guarding, no rigidity, no organomegaly. Extremities: No cyanosis, clubbing, no edema Neuro: Cranial nerves II through XII grossly intact, normal affect and speech, no focal motor deficits. Labs/Xrays ORDERING PHYSICIAN: LATIA HORNER MD PROCEDURE(s): CXR1 - CHEST XRAY 1 VIEW REASON: S/P INTUBATION ORDER NUMBER(s): [id number], ACCESSION NUMBER(s): [id number] CHEST RADIOGRAPH Indication: S/P INTUBATION Technique: Single frontal view of the chest was obtained Comparison: XY CHEST XRAY 1 VIEW on DOS: 05/10/25, XY CHEST XRAY 1 VIEW on DOS: 12/24/23 FINDINGS: Lines and Tubes: Endotracheal tube in place 2.7 cm above the nima. Enteric tube is noted below the left diaphragm in the stomach. Lungs: No focal consolidation. Pleura: No effusion. No pneumothorax. Cardiomediastinal contours: Unremarkable Bones: No acute osseous abnormality. IMPRESSION: 1. Endotracheal tube 2.7 cm above the nima. 2. Enteric tube below the left diaphragm in the stomach. 3. Cardiopulmonary findings are stable. Labs Test 05/10/25 21:15 05/10/25 20:29 Range/Units Blood Gas Specimen Type Arterial Blood Gas Sample Site Right radial Blood Gas Patient Temperature 37.0 Arterial Blood Date Drawn [id number] Arterial Blood pH 7.200 *L 7.350-7.450 Arterial Blood Partial Pressure CO2 46.7 H 32.0-45.0 mmHg Arterial Blood Partial Pressure O2 94.8 83.0-108.0 mmHg Arterial Blood HCO3 17.8 L 21.0-28.0 mmol/L Arterial Blood Oxygen Saturation 94.7 94.0-98.0 % Arterial Blood Base Excess -9.9 L -2.0-3.0 mmol/L Arterial Blood Oxyhemoglobin 93.6 L 94.0-98.0 % Arterial Blood Carboxyhemoglobin 0.4 L 0.5-1.5 % Arterial Blood Methemoglobin 0.8 0.0-1.5 % Laron Test Positive Blood Gas Total Hemoglobin 11.60 L 12.0-16.0 g/dL Blood Gas Set Respiration Rate 16.0 Blood Gas Modality Vent - ac FiO2 % 100.0 Blood Gas Tidal Volume 400.0 Blood Gas PEEP or CPAP 5.0 Blood Gas Critical Value Read Back yes Blood Gas Notified Whom latia Horner md Blood Gas Notified Time [id number] Blood Gas Notified By Casket Trimmer luis felipe zavala White Blood Count 14.8 H 4.4-10.8 10^3/uL Red Blood Count 4.26 4.0-5.20 10^6/uL Hemoglobin 12.9 12.2-16.2 g/dL Hematocrit 40.2 36.0-46.0 % Mean Corpuscular Volume 94.4 80.0-100.0 fL Mean Corpuscular Hemoglobin 30.2 28.0-32.0 pg Mean Corpuscular Hemoglobin Concent 32.0 32.0-36.0 g/dL Red Cell Distribution Width 15.4 H 11.8-14.3 % Platelet Count 348 140-450 10^3/uL Mean Platelet Volume 7.5 6.9-10.8 fL Neutrophils (%) (Auto) 37.0-80.0 % Lymphocytes (%) (Auto) 10.0-50.0 % Monocytes (%) (Auto) 0.0-12.0 % Basophils (%) (Auto) 0.0-2.0 % Neutrophils # (Auto) 1.6-8.6 10 ^3/uL Lymphocytes # (Auto) 0.4-5.4 10 ^3/uL Monocytes # (Auto) 0-1.3 10 ^3/uL Differential Total Cells Counted 100.0 100 Neutrophils % (Manual) 30 L 37.0-80.0 Band Neutrophils % (Manual) 1 Lymphocytes % (Manual) 60 H 10.0-50.0 Monocytes % (Manual) 9 0-12 Eosinophils % (Manual) 0 0-7 Basophils % (Manual) 0 0.0-2.0 Metamyelocytes % (manual) 0 Myelocytes % (Manual) 0 Promyelocytes % (Manual) 0 Blast Cells % (Manual) 0 Reactive Lymphocytes 0 Platelet Estimate Adequate Red Blood Cell Morphology Normal Sodium Level 138 136-145 mmol/L Potassium Level 4.8 3.5-5.1 mmol/L Chloride Level 105 98-107 mmol/L Carbon Dioxide Level 21 20-31 mmol/L Anion Gap 12 5-15 Blood Urea Nitrogen 16 9-23 mg/dL Creatinine 1.03 H 0.550-1.02 mg/dL Glomerular Filtration Rate Calc 52 >90 mL/min BUN/Creatinine Ratio 15.5 10.0-20.0 Serum Glucose 237 H 74-106 mg/dL Calcium Level 8.8 8.7-10.4 mg/dL SEPSIS Sepsis Screen Date sepsis recognized/suspect: May 10, 2025 Time Sepsis recognized/suspect: 2028 Recent Procedure: No On Antibiotic Therapy: Yes Respiratory Rate >20: No Heart Rate >90: Yes Temp<36 C (96.8 F) or >38.3 C: No SBP <90 or MAP <65 mmHG: No New Acute Mental Status Change: No Is the patient on CPAP, BIPAP,: No Physician Orders Rass Sedation Scale Q1HR (05/10/25 20:12) Communication Order (05/10/25 20:25) Urinalysis (05/10/25 20:27) Abg W/ Co-Ox (05/10/25 20:30) Respiratory Culture W/ Gs (05/10/25 20:30) Chest Xray 1 View (05/10/25 20:32) Propofol (Diprivan) (05/10/25 20:45) Fentanyl Drip 2500mcg/250mlns (05/10/25 21:00) Communication Order (05/10/25 20:50) Chest Xray 1 View (05/10/25 20:52) Communication Order (05/10/25 20:54) Communication Order (05/10/25 21:05) Communication Order (05/10/25 21:43) Midazolam Drip 50 Mg/50ml (Versed Drip 5 (05/10/25 22:00) Communication Order (05/10/25 21:49) Epinephrine Hcl (05/10/25 22:00) Ventilator Setup (05/10/25 22:22) B-Type Natriuretic Peptide (05/10/25 22:28) Norepinephrine 8 Mg/250ml Kit (Levophed) (05/10/25 22:30) Sodium Chloride 0.9% (05/10/25 22:30) Famotidine Injection (Pepcid Injection) (05/11/25 10:00) Admit (05/10/25 22:28) Ondansetron Hcl (Zofran) (05/10/25 22:30) Enoxaparin Sodium (Lovenox) (05/11/25 10:00) Complete Blood Count (05/11/25 04:00) Comprehensive Metabolic Panel (05/11/25 04:00) Condition: Unstable (05/10/25 22:28) Acetaminophen Tablet (Tylenol Tablet) (05/10/25 22:30) Maintain Bed Rest (05/10/25 22:28) Sequential Compression Device (05/10/25 ) Nitroglycerin Sublingual (Ntrostat Subli (05/10/25 22:30) Morphine Sulfate Injection (05/10/25 22:30) Stat Ekg For Chest Pain (05/10/25 22:28) Notify Md Of Changes From Base (05/10/25 22:28) Machine Sand Mixer For 24 Hours (05/10/25 22:28) Emergency Dysrhythmia Protocol (05/10/25 22:) Rhythm Strips Once Every Shift (05/10/25 22:28) Oxygen By Nasal Cannula (05/10/25 22:28) Hemoglobin A1c (05/10/25 22:28) Vital Signs Date Time Temp Pulse Resp B/P (MAP) Pulse Ox O2 Delivery O2 Flow Rate FiO2 05/10/25 22:04 72 16 97 05/10/25 22:00 80/32 05/10/25 21:13 16 83/36 (52) 97 100 05/10/25 21:13 72 83/36 (52) 97 100 05/10/25 21:05 163/58 05/10/25 21:05 163/58 05/10/25 21:05 91 14 163/58 (93) 99 05/10/25 21:01 90 05/10/25 20:55 162/68 05/10/25 20:50 109 20 162/68 (99) 86 05/10/25 20:50 162/68 05/10/25 20:45 162/68 05/10/25 20:45 109 20 162/68 (99) 86 05/10/25 20:30 102 14 154/76 (102) 98 05/10/25 20:26 98.2 140 20 107/69 95 98.2 05/10/25 20:25 117 21 143/74 (97) 98 05/10/25 20:21 143/74 05/10/25 20:15 129 21 133/67 (89) 96 05/10/25 20:05 124 21 143/90 (107) 97 Laboratory Tests Test 05/10/25 20:29 White Blood Count 14.8 10^3/uL (4.4-10.8) H Medications Medications Dose Ordered Sig/Jonathan Route Start Time Stop Time Status Last Admin Dose Admin Albuterol 2.5 mg ONCE ONCE NEB 05/10/25 20:00 05/10/25 20:01 MD 05/10/25 21:17 2.5 MG Dexamethasone Sodium Phosphate 10 mg ONCE ONCE IV 05/10/25 20:00 05/10/25 20:01 MD 05/10/25 20:00 10 MG Diphenhydramine HCl 25 mg ONCE ONCE IV 05/10/25 21:15 05/10/25 21:16 MD 05/10/25 21:21 25 MG Epinephrine HCl 0.3 mg ONCE ONCE IM 05/10/25 20:00 05/10/25 20:01 MD 05/10/25 20:00 0.3 MG Epinephrine HCl 0.3 mg ONCE ONCE IM 05/10/25 21:15 05/10/25 21:16 MD 05/10/25 21:19 0.3 MG Etomidate 10 mg ONCE ONCE IV 05/10/25 20:30 05/10/25 20:31 MD 05/10/25 20:20 10 MG Etomidate 20 mg ONCE ONCE IV 05/10/25 20:00 05/10/25 20:01 MD 05/10/25 20:12 20 MG Famotidine 20 mg ONCE ONCE IV 05/10/25 20:00 05/10/25 20:01 MD 05/10/25 21:21 20 MG Fentanyl Citrate 250 ml @ 2.5 mls/hr Q24H IV 05/10/25 21:00 05/10/25 20:50 2.5 MLS/HR Methylprednisolone Sodium Succinate 62.5 mg ONCE ONCE IV 05/10/25 21:15 05/10/25 21:16 DC 05/10/25 21:22 62.5 MG Midazolam HCl 50 ml @ 1 mls/hr Q24H IV 05/10/25 22:00 05/10/25 22:00 5 MLS/HR Ondansetron HCl 4 mg ONCE ONCE IV 05/10/25 21:00 05/10/25 21:01 DC 05/10/25 21:00 4 MG Propofol 100 ml @ 2.177 mls/ hr Q24H IV 05/10/25 20:45 05/10/25 20:45 2.177 MLS/HR Rocuronium [place] 100 mg ONCE ONCE IV 05/10/25 20:15 05/10/25 20:16 DC 05/10/25 20:21 100 MG Sodium Chloride 1,000 ml @ 1,000 mls/hr Q1H ONCE IV 05/10/25 20:45 05/10/25 21:44 DC 05/10/25 20:47 1,000 MLS/HR Sodium Chloride 1,000 ml @ 1,000 mls/hr Q1H ONCE IV 05/10/25 21:00 05/10/25 21:59 DC 05/10/25 21:52 1,000 MLS/HR Assessment/Plan Assessment/Plan Assessment Anaphylactic shock Acute respiratory failure Hyperglycemia Angioedema Plan Admit the patient to ICU to the hospitalist Maintenance IV fluids Try to wean vasoactive drips to off Pulmonary consultation Continue treatment per orders Total critical care time excluding procedures performed this 55 minutes. Plan discussed with: Other My Orders Orders - NATHAN FERREIRA [facility] Procedure Category Date Status Time B-Type Natriuretic LAB 05/10/25 In Process Peptide 22:28 Norepinephrine 8 PHA 05/10/25 In Process Mg/250ml Kit 22:30 Sodium Chloride 0.9% PHA 05/10/25 In Process 22:30 Famotidine Injection PHA 05/11/25 In Process (Pepcid Injection) 10:00 Admit ADMIT 05/10/25 Transmitted 22:28 Ondansetron Hcl PHA 05/10/25 In Process (Zofran) 22:30 Enoxaparin Sodium PHA 05/11/25 In Process (Lovenox) 10:00 Complete Blood Count LAB 05/11/25 Verified 04:00 Comprehensive LAB 05/11/25 Verified Metabolic Panel 04:00 Condition: Unstable GRAY 05/10/25 In Process 22:28 Acetaminophen Tablet PHA 05/10/25 In Process (Tylenol Tablet) 22:30 Maintain Bed Rest GRAY 05/10/25 In Process 22:28 Sequential GRAY 05/10/25 In Process Compression Device Nitroglycerin PHA 05/10/25 In Process Sublingual (Ntrostat 22:30 Morphine Sulfate PHA 05/10/25 In Process Injection 22:30 Stat Ekg For Chest GRAY 05/10/25 In Process Pain 22:28 Notify Md Of Changes [facility] 05/10/25 In Process From Base 22:28 Machine Sand Mixer For [facility] 05/10/25 In Process 24 Hours 22:28 Emergency Dysrhythmia [facility] 05/10/25 In Process Protocol 22:28 Rhythm Strips Once [facility] 05/10/25 In Process Every Shift 22:28 Oxygen By Nasal RT 05/10/25 Transmitted Cannula 22:28 Hemoglobin A1c LAB 05/10/25 In Process 22:28 Date of Service: May 10, 2025 Billing Provider: NATHAN FERREIRA Common Visit Codes: [id number] CARE 30-74 MIN NATHAN FERREIRA May 10, 2025 22:50
[2025-05-10 23:22] VITALS: BP_SYST 118; BP_SYST 83; BP_DIAS 36; BP_DIAS 45; PULSE 72; PULSE 74; RESP 16; O2SAT 100; O2SAT 97
[2025-05-11] VITALS (78 sets, daily range): BP systolic 61–159; BP diastolic 27–71; PULSE 61–102; RESP 18–92; TEMP 97.5–99; O2SAT 93–100
[2025-05-11] MEDS: NOREPINEPHRINE 8 MG/250ML KIT 250 ML IV SCH
[2025-05-11 00:26] LABS: Urine Protein, UAD TRACE (Negative); Urine WBC Clumps PRESENT /hpf (None Seen)
--- NOTE | 2025-05-11 02:00 | DVH ---
CHEST RADIOGRAPH Indication: Central Line placement Technique: 1 view Comparison: XY CHEST XRAY 1 VIEW on DOS: 05/10/25, XY CHEST XRAY 1 VIEW on DOS: 05/10/25, XY CHEST XRAY 1 VIEW on DOS: 12/24/23 FINDINGS: Lines and Tubes: Intervally placed right IJ catheter terminates over the right atrium. Endotracheal and enteric tubes are unchanged. Lungs: Worsening left basilar opacity with air bronchograms and silhouetting of the hemidiaphragm. Pe rsistent bilateral interstitial opacities. Pleura: No large pleural effusion. No pneumothorax. Cardiomediastinal contours: Unchanged. Other: Unchanged. IMPRESSION: 1. Intervally placed right IJ catheter without evidence of complication, terminating at the right atr ium. Endotracheal and enteric tubes are unchanged. 2. Worsening left basilar density likely combination of airspace disease and pleural effusion. 3. No other significant change from less than 5 hours prior.
[2025-05-11 03:54] LABS: Base Excess -11.0 mmol/L (-2.0-3.0)
[2025-05-11 06:27] LABS: Hematocrit 34.2 % (36.0-46.0); Hemoglobin 11.4 g/dL (12.2-16.2); Mean Corpuscular Hemoglobin 30.7 pg (28.0-32.0); Mean Corpuscular Volume 91.7 fL (80.0-100.0); Nucleated Red Blood Cells % 0.0 %
[2025-05-11 06:30] LABS: Alanine Aminotransferase 29 U/L (7-40); Anion Gap 13 (5-15); BUN/Creatinine Ratio 18.4 (10.0-20.0); Blood Urea Nitrogen 16 mg/dL (9-23); Sodium 138 mmol/L (136-145)
[2025-05-11 06:31] LABS: Albumin 4.2 g/dL (3.2-4.8); Total Protein 6.1 g/dL (5.7-8.2)
[2025-05-11 06:32] LABS: Bilirubin, Total 0.4 mg/dL (0.2-1.0)
[2025-05-11 06:36] LABS: Chloride 107 mmol/L (98-107)
[2025-05-11 06:37] LABS: Alkaline Phosphatase 40 U/L (46-116); Carbon Dioxide 18 mmol/L (20-31); Glucose 295 mg/dL (74-106)
[2025-05-11 06:38] LABS: Calcium 8.0 mg/dL (8.7-10.4); Potassium 6.1 mmol/L (3.5-5.1)
[2025-05-11 07:16] LABS: Base Excess -8.2 mmol/L (-2.0-3.0)
[2025-05-11] MEDS: SODIUM ZIRCONIUM CYCL 10 GM PAK GT ONE (08:20)
[2025-05-11] MEDS: SODIUM ZIRCONIUM CYCL 10 GM PAK ONE (08:20)
[2025-05-11] MEDS: FAMOTIDINE (10MG/ML) 2ML VL IV SCH (10:08)
[2025-05-11] MEDS: ENOXAPARIN SOD 40 MG/0.4 ML SYRINGE SC SCH (10:09)
[2025-05-11] MEDS: D5W/SOD CHLO 0.9% 1,000 ML IV SCH (14:37)
[2025-05-11] MEDS: methylPREDNISolone SOD SUCC 125 MG/2 ML VL IV SCH (14:37)
[2025-05-11] MEDS: ALBUTEROL SULF 2.5 MG/0.5ML(0.5%) NEB SOLN NEB ONE (16:31)
--- NOTE | 2025-05-11 16:56 | DVHINCON2 ---
Date of service: May 11, [address] Dacosta Reason for Consultation Hyperkalemia History of Present Illness 89-year-old female history is obtained by family at bedside. Patient has a past medical history of hypertension , diabetes and frequent UTIs. Patient recently had urinary tract infection for which she was taking Bactrim. She stopped the medication approximately one week ago but reports symptoms returned and therefore was given a cephalosporin antibiotic as an alternative medication. Per family patient had an immediate reaction within the 1st 15 minutes of use which included severe facial rash, facial swelling throat tightness and shortness of breath. Patient was transported to the ER and intubated due to respiratory distress. Nephrology consulted due to elevated potassium level Past Medical History htn, dm2 Allergies: Coded Allergies: Nitrofurantoin (Verified Allergy, Unknown, 12/24/23) Uncoded Allergies: CEPHALOSPORINS (Allergy, Severe, ANAPHYLACTIC, 05/11/25) Home Meds Reported Medications Ascorbic Acid (VITAMIN C TABLET) 500 Mg Tb, 1 TAB PO DAILY, #30 TAB 3 Refills 06/09/19 Cyanocobalamin (Vitamin B12) 100 Mcg Tab, 100 MCG PO, TAB 06/09/19 Cholecalciferol (VITAMIN D3) 2,000 Unit Tab, 1 TAB PO DAILY, #30 TAB 5 Refills 06/09/19 Multiple Vitamins W/ Minerals (MULTIVITAMIN) Liq, 1 OR, LIQ 06/09/19 Aspirin (Aspir-Low) 81 Mg Tab, 81 MG PO DAILY for 30 Days, MG 06/09/19 Simvastatin (Zocor) 40 Mg Tab, 1 TAB PO DAILY, #90 TAB 1 Refill 06/09/19 Lisinopril (Lisinopril) 2.5 Mg Tab 06/09/19 Metformin Hydrochloride (Metformin Hcl) 1,000 Mg Tab 06/09/19 Current Medications Current Medications Medications (Trade) Dose Ordered Sig/Jonathan Route PRN Reason Start Time Stop Time Status Last Admin Propofol 100 ml @ 2.181 mls/ hr Q24H IV 05/10/25 20:15 05/10/25 20:58 DC Propofol 100 ml @ 2.177 mls/ hr Q24H IV 05/10/25 20:45 05/11/25 13:41 DC 05/10/25 20:45 Fentanyl Citrate 250 ml @ 2.5 mls/hr Q24H IV 05/10/25 21:00 05/11/25 10:19 Midazolam HCl 50 ml @ 1 mls/hr Q24H IV 05/10/25 22:00 05/11/25 01:54 Norepinephrine Bitartrate 250 ml @ 3.75 mls/hr Q24H IV 05/10/25 22:30 05/11/25 01:10 Famotidine (Pepcid Injection) 20 mg Q12HR IV 05/11/25 10:00 05/11/25 10:08 Ondansetron HCl (Zofran) 4 mg Q4HP PRN IV NAUSEA / VOMITING 05/10/25 22:30 Enoxaparin Sodium (Lovenox) 40 mg DAILY SC 05/11/25 10:00 05/11/25 10:09 Acetaminophen (Tylenol Tablet) 650 mg Q6HP PRN PO PAIN SCALE 1-3 OR TEMP>100.4 05/10/25 22:30 Nitroglycerin (Ntrostat Sublingual) 0.4 mg Q5MINP PRN SL FOR CHEST PAIN 05/10/25 22:30 Morphine Sulfate 2 mg Q30M PRN IV FOR CHEST PAIN 05/10/25 22:30 Dextrose/Sodium Chloride 1,000 ml @ 75 mls/hr [id number] IV 05/11/25 13:15 05/11/25 15:40 DC 05/11/25 14:37 Methylprednisolone Sodium Succinate (Solu Medrol) 60 mg Q6HR IV 05/11/25 13:45 05/11/25 14:37 Zirconium Oxide (Lokelma) 10 gm TID GT 05/11/25 22:00 05/13/25 21:59 Sodium Bicarbonate 150 ml/Dextrose 1,150 ml @ 75 mls/hr [id number] IV 05/11/25 15:45 Family History: Cerebrovascular accident (CVA) G8 MOTHER Diabetes mellitus G8 MOTHER Review of Systems Allergic reaction respiratory distress H&P Exam Vital Signs/I&O Vital Sign Date Time Temp Pulse Resp B/P (MAP) Pulse Ox O2 Delivery O2 Flow Rate FiO2 05/11/25 16:31 67 20 100 05/11/25 16:08 121/41 (67) 35 05/11/25 14:30 Mechanical Ventilator+ 05/11/25 09:30 98.4 98.4 Intake and Output 05/10/25 05/11/25 19:00 07:00 Intake Total 2565.86913 ml Output Total 700 ml Balance 1865.53228 ml Intake IV Total 2565.08719 ml Output Urine Total 700 ml Physical Exam Elderly female Intubated On pressors Sedated Facial rash No pitting edema Labs/Diagnostic Data Labs/Diagnostic Data Laboratory Tests Test 05/11/25 09:52 05/11/25 07:11 05/11/25 05:21 05/11/25 03:40 Range/Units Potassium Level 6.0 *H 6.1 *H 3.5-5.1 mmol/L Blood Gas Specimen Type Arterial Arterial Blood Gas Sample Site Right radial Left radial Blood Gas Patient Temperature 37.0 37.0 Arterial Blood Date Drawn [id number] Arterial Blood pH 7.275 L 7.203 *L 7.350-7.450 Arterial Blood Partial Pressure CO2 39.8 42.9 32.0-45.0 mmHg Arterial Blood Partial Pressure O2 103.8 113.3 H 83.0-108.0 mmHg Arterial Blood HCO3 18.1 L 16.5 L 21.0-28.0 mmol/L Arterial Blood Oxygen Saturation 97.5 97.3 94.0-98.0 % Arterial Blood Base Excess -8.2 L -11.0 L -2.0-3.0 mmol/L Arterial Blood Oxyhemoglobin 95.9 96.2 94.0-98.0 % Arterial Blood Carboxyhemoglobin 0.7 0.2 L 0.5-1.5 % Arterial Blood Methemoglobin 0.9 0.9 0.0-1.5 % Laron Test Modified Positive Blood Gas Total Hemoglobin 12.30 12.30 12.0-16.0 g/dL Blood Gas Set Respiration Rate 20.0 20.0 Blood Gas Modality Vent - ac Vent - ac FiO2 % 50.0 60.0 Blood Gas Tidal Volume 400.0 400.0 Blood Gas PEEP or CPAP 5.0 5.0 White Blood Count 21.3 #H 4.4-10.8 10^3/uL Red Blood Count 3.72 L 4.0-5.20 10^6/uL Hemoglobin 11.4 L 12.2-16.2 g/dL Hematocrit 34.2 #L 36.0-46.0 % Mean Corpuscular Volume 91.7 80.0-100.0 fL Mean Corpuscular Hemoglobin 30.7 28.0-32.0 pg Mean Corpuscular Hemoglobin Concent 33.4 32.0-36.0 g/dL Red Cell Distribution Width 15.0 H 11.8-14.3 % Platelet Count 301 140-450 10^3/uL Mean Platelet Volume 7.7 6.9-10.8 fL Neutrophils (%) (Auto) 92.1 H 37.0-80.0 % Lymphocytes (%) (Auto) 3.7 L 10.0-50.0 % Monocytes (%) (Auto) 4.1 0.0-12.0 % Eosinophils (%) (Auto) 0.0 0.0-7.0 % Basophils (%) (Auto) 0.1 0.0-2.0 % Neutrophils # (Auto) 19.6 H 1.6-8.6 10 ^3/uL Lymphocytes # (Auto) 0.8 0.4-5.4 10 ^3/uL Monocytes # (Auto) 0.9 0-1.3 10 ^3/uL Eosinophils # (Auto) 0 0-0.8 10 ^3/uL Basophils # (Auto) 0 0-0.2 10 ^3/uL Nucleated Red Blood Cells 0.0 % Sodium Level 138 136-145 mmol/L Chloride Level 107 98-107 mmol/L Carbon Dioxide Level 18 L 20-31 mmol/L Anion Gap 13 5-15 Blood Urea Nitrogen 16 9-23 mg/dL Creatinine 0.87 0.550-1.02 mg/dL Glomerular Filtration Rate Calc 64 >90 mL/min BUN/Creatinine Ratio 18.4 10.0-20.0 Serum Glucose 295 H 74-106 mg/dL Calcium Level 8.0 L 8.7-10.4 mg/dL Total Bilirubin 0.4 0.2-1.0 mg/dL Aspartate Amino Transferase (AST) 24 13-40 U/L Alanine Aminotransferase (ALT) 29 7-40 U/L Alkaline Phosphatase 40 L 46-116 U/L Total Protein 6.1 5.7-8.2 g/dL Albumin 4.2 3.2-4.8 g/dL Blood Gas Critical Value Read Back Yes Blood Gas Notified Whom giuseppe Bhagat md Blood Gas Notified Time [id number] Blood Gas Notified By Executive Pastry Chef luis felipe zavala Test 05/10/25 23:30 05/10/25 21:15 05/10/25 20:29 Range/Units Urine Color Colorless Yellow Urine Clarity Turbid H Clear Urine pH 5.5 5.0-9.0 Urine Specific [place] 1.014 1.001-1.035 Urine Protein Trace H Negative Urine Ketones Trace Negative Urine Blood Negative Negative /uL Urine Nitrite Negative Negative Urine Bilirubin Negative Negative Urine Urobilinogen Normal Negative mg/dL Urine Leukocyte Esterase 3+ Negative /uL Urine RBC None seen 0 - 4 /hpf Urine WBC Clumps Present None Seen /hpf Urine Microscopic WBC 288 H 0-5 /HPF Urine Squamous Epithelial Cells None seen <5 /hpf Urine Bacteria Few H None Seen /hpf Urine Glucose Normal Normal mg/dL Blood Gas Specimen Type Arterial Blood Gas Sample Site Right radial Blood Gas Patient Temperature 37.0 Arterial Blood Date Drawn [id number] Arterial Blood pH 7.200 *L 7.350-7.450 Arterial Blood Partial Pressure CO2 46.7 H 32.0-45.0 mmHg Arterial Blood Partial Pressure O2 94.8 83.0-108.0 mmHg Arterial Blood HCO3 17.8 L 21.0-28.0 mmol/L Arterial Blood Oxygen Saturation 94.7 94.0-98.0 % Arterial Blood Base Excess -9.9 L -2.0-3.0 mmol/L Arterial Blood Oxyhemoglobin 93.6 L 94.0-98.0 % Arterial Blood Carboxyhemoglobin 0.4 L 0.5-1.5 % Arterial Blood Methemoglobin 0.8 0.0-1.5 % Laron Test Positive Blood Gas Total Hemoglobin 11.60 L 12.0-16.0 g/dL Blood Gas Set Respiration Rate 16.0 Blood Gas Modality Vent - ac FiO2 % 100.0 Blood Gas Tidal Volume 400.0 Blood Gas PEEP or CPAP 5.0 Blood Gas Critical Value Read Back yes Blood Gas Notified Whom jocelyne Horner md Blood Gas Notified Time [id number] Blood Gas Notified By Executive Pastry Chef luis felipe zavala White Blood Count 14.8 H 4.4-10.8 10^3/uL Red Blood Count 4.26 4.0-5.20 10^6/uL Hemoglobin 12.9 12.2-16.2 g/dL Hematocrit 40.2 36.0-46.0 % Mean Corpuscular Volume 94.4 80.0-100.0 fL Mean Corpuscular Hemoglobin 30.2 28.0-32.0 pg Mean Corpuscular Hemoglobin Concent 32.0 32.0-36.0 g/dL Red Cell Distribution Width 15.4 H 11.8-14.3 % Platelet Count 348 140-450 10^3/uL Mean Platelet Volume 7.5 6.9-10.8 fL Neutrophils (%) (Auto) 37.0-80.0 % Lymphocytes (%) (Auto) 10.0-50.0 % Monocytes (%) (Auto) 0.0-12.0 % Basophils (%) (Auto) 0.0-2.0 % Neutrophils # (Auto) 1.6-8.6 10 ^3/uL Lymphocytes # (Auto) 0.4-5.4 10 ^3/uL Monocytes # (Auto) 0-1.3 10 ^3/uL Differential Total Cells Counted 100.0 100 Neutrophils % (Manual) 30 L 37.0-80.0 Band Neutrophils % (Manual) 1 Lymphocytes % (Manual) 60 H 10.0-50.0 Monocytes % (Manual) 9 0-12 Eosinophils % (Manual) 0 0-7 Basophils % (Manual) 0 0.0-2.0 Metamyelocytes % (manual) 0 Myelocytes % (Manual) 0 Promyelocytes % (Manual) 0 Blast Cells % (Manual) 0 Reactive Lymphocytes 0 Platelet Estimate Adequate Red Blood Cell Morphology Normal Sodium Level 138 136-145 mmol/L Potassium Level 4.8 3.5-5.1 mmol/L Chloride Level 105 98-107 mmol/L Carbon Dioxide Level 21 20-31 mmol/L Anion Gap 12 5-15 Blood Urea Nitrogen 16 9-23 mg/dL Creatinine 1.03 H 0.550-1.02 mg/dL Glomerular Filtration Rate Calc 52 >90 mL/min BUN/Creatinine Ratio 15.5 10.0-20.0 Serum Glucose 237 H 74-106 mg/dL Hemoglobin A1c 7.3 H <5.7 % A1C Calcium Level 8.8 8.7-10.4 mg/dL B-Type Natriuretic Peptide 18.11 0-100 pg/mL Assessment 89-year-old female past medical history of hypertension and urinary tract infection developed a severe anaphylactic reaction to cephalosporin antibiotic which resulted in respiratory failure. Nephrology consulted for hyperkalemia Preserved renal function Hyperkalemia Anaphylactic reaction Respiratory failure Potassium binder via OG tube 3 times a day Albuterol nebulizer treatment to help improve potassium shifting Hold lisinopril home medication at this time Sodium bicarbonate drip, isotonic fluid to improve blood pressure as well as intracellular potassium shifting Monitor and check potassium and magnesium level daily Case discussed with ICU nurse at bedside Case discussed with family at bedside Care time 55 minutes Plan discussed with: Other (family) EUSEBIO GOODEN MD May 11, 2025 16:56
[2025-05-11 17:21] LABS: Potassium 3.9 mmol/L (3.5-5.1); Sodium 141 mmol/L (136-145)
[2025-05-11 17:22] LABS: Anion Gap 12 (5-15); Carbon Dioxide 21 mmol/L (20-31)
[2025-05-11 17:28] LABS: BUN/Creatinine Ratio 16.3 (10.0-20.0); Blood Urea Nitrogen 13 mg/dL (9-23); Calcium 7.7 mg/dL (8.7-10.4); Chloride 108 mmol/L (98-107); Glucose 271 mg/dL (74-106)
[2025-05-11] MEDS: SODIUM ZIRCONIUM CYCL 10 GM PAK GT SCH (18:44)
[2025-05-11] MEDS: SODIUM BICARB 50mEq/50ml Vial 150 ML in D5W 5% 1,000 ML IV SCH (18:45)
--- NOTE | 2025-05-11 20:45 | DVHPN2 ---
Subjective She is admitted overnight for anaphylactic shock from taking Ceftin/cephalosporin antibiotic. Patient had significant throat and tongue swelling. Therefore she was emergently intubated. Currently she remains intubated and stable. Changes from previous H/P or p: No Changes Objective Vitals Vital Signs Date Time Temp Pulse Resp B/P (MAP) Pulse Ox O2 Delivery O2 Flow Rate FiO2 05/11/25 20:25 129/43 05/11/25 19:00 97.9 92 20 95 97.9 05/11/25 18:30 Mechanical Ventilator+ 35 35 Intake/Output Intake and Output 05/11/25 07:00 Intake Total 2565.82652 ml Output Total 700 ml Balance 1865.87771 ml Intake IV Total 2565.78198 ml Output Urine Total 700 ml Exam Sedated comfortable on ventilator without any acute cardiopulmonary distress. HEENT notable for enlarged/thick tongue. Pupils equal round react to light. Neck supple no JVD. Heart regular rate and rhythm S1-S2. Lungs fair air movement without rales wheezes. Abdomen soft nontender positive bowel sounds. Extremities no edema positive pulses. Medications Current Medications Medications Dose Ordered Sig/Jonathan Route Start Time Stop Time Status Last Admin Dose Admin Fentanyl Citrate 250 ml @ 2.5 mls/hr Q24H IV 05/10/25 21:00 05/11/25 10:19 10 MLS/HR Midazolam HCl 50 ml @ 1 mls/hr Q24H IV 05/10/25 22:00 05/11/25 20:25 5 MLS/HR Norepinephrine Bitartrate 250 ml @ 3.75 mls/hr Q24H IV 05/10/25 22:30 05/11/25 01:10 3.75 MLS/HR Famotidine 20 mg Q12HR IV 05/11/25 10:00 05/11/25 10:08 20 MG Ondansetron HCl 4 mg Q4HP PRN IV 05/10/25 22:30 Enoxaparin Sodium 40 mg DAILY SC 05/11/25 10:00 05/11/25 10:09 40 MG Acetaminophen 650 mg Q6HP PRN PO 05/10/25 22:30 Nitroglycerin 0.4 mg Q5MINP PRN SL 05/10/25 22:30 Morphine Sulfate 2 mg Q30M PRN IV 05/10/25 22:30 Methylprednisolone Sodium Succinate 60 mg Q6HR IV 05/11/25 13:45 05/11/25 18:45 60 MG Sodium Bicarbonate 150 ml/Dextrose 1,150 ml @ 75 mls/hr [id number] IV 05/11/25 15:45 05/11/25 18:45 75 MLS/HR Laboratory Results Laboratory Tests 05/11/25 05:21 05/11/25 17:05 Chemistry Test 05/11/25 05:21 05/11/25 17:05 Albumin 4.2 g/dL (3.2-4.8) Calcium Level 8.0 mg/dL (8.7-10.4) L 7.7 mg/dL (8.7-10.4) L Total Protein 6.1 g/dL (5.7-8.2) LFT Test 05/11/25 05:21 Alanine Aminotransferase (ALT) 29 U/L (7-40) Alkaline Phosphatase 40 U/L (46-116) L Aspartate Amino Transferase (AST) 24 U/L (13-40) Total Bilirubin 0.4 mg/dL (0.2-1.0) Urinalysis Test 05/10/25 23:30 Urine Color Colorless (Yellow) Urine Clarity Turbid (Clear) H Urine pH 5.5 (5.0-9.0) Urine Specific [place] 1.014 (1.001-1.035) Urine Protein Trace (Negative) H Urine Ketones Trace (Negative) Urine Blood Negative /uL (Negative) Urine Nitrite Negative (Negative) Urine Bilirubin Negative (Negative) Urine Urobilinogen Normal mg/dL (Negative) Urine Leukocyte Esterase 3+ /uL (Negative) Urine RBC None seen /hpf (0 - 4) Urine WBC Clumps Present /hpf (None Seen) Urine Microscopic WBC 288 /HPF (0-5) H Urine Squamous Epithelial Cells None seen /hpf (<5) Urine Bacteria Few /hpf (None Seen) H Urine Glucose Normal mg/dL (Normal) Blood Gas Results Test 05/10/25 21:15 05/11/25 03:40 05/11/25 07:11 Arterial Blood pH 7.200 (7.350-7.450) 7.203 (7.350-7.450) 7.275 (7.350-7.450) FiO2 % 100.0 60.0 50.0 Microbiology Microbiology Date/Time Source Procedure Growth Status 05/10/25 21:14 Sputum Gram Stain - Final Resulted 05/10/25 21:14 Sputum Respiratory Culture - Preliminary Resulted Assessment/Plan Assessment/Plan Continue current ventilator management. I will start her on IV fluids with the D5 for nutrition/calorie agent. Start her on IV steroids for tongue swelling. Continue Pepcid antihistamine as well. Continue current vent management. I will have Pulmonary consultation to further manage the vent. Continue rest of supportive care and treatment. Further clinical management per clinical course and recommendations from the consultants. Discussed with the patient's daughter along with the nurse at bedside regarding care plan. Plan discussed with: Daughter, Other My Orders Orders - DEJON ORTEZ MD Procedure Category Date Status Time *Dr. Archie Graham CONS 05/11/25 Transmitted -[place] 11:36 Comprehensive LAB 05/12/25 Verified Metabolic Panel 04:00 Complete Blood Count LAB 05/12/25 Verified 04:00 Chest Portable XY 05/12/25 Logged 05:00 Chest Portable XY 05/13/25 Logged 05:00 Chest Portable XY 05/14/25 Logged 05:00 Chest Portable XY 05/15/25 Logged 05:00 Chest Portable XY 05/16/25 Logged 05:00 Abg W/ Co-Ox RT 05/12/25 Logged 05:00 Abg W/ Co-Ox RT 05/13/25 Logged 05:00 Abg W/ Co-Ox RT 05/14/25 Logged 05:00 Abg W/ Co-Ox RT 05/15/25 Logged 05:00 Abg W/ Co-Ox RT 05/16/25 Logged 05:00 *Consult CONS 05/11/25 Transmitted / 13:08 Methylprednisolone PHA 05/11/25 In Process Sod Succ (Solu Medrol 13:45 Problem List: (1) Anaphylactic shock Date of Service: May 11, 2025 Billing Provider: DEJON ORTEZ MD Common Visit Codes: [id number] INP/OBS CARE(MOD) EDJON ORTEZ MD May 11, 2025 20:45
--- NOTE | 2025-05-11 22:56 | DVHINCON2 ---
Date of service: May 11, [address] Dominguez Reason for Consultation Acute hypoxic respiratory failure requiring mechanical ventilator. History of Present Illness An 89-year-old woman with past medical history of dyslipidemia, diabetes mellitus and UTIs who presented to ED on 05/10/25 for evaluation of allergic reaction. Patient presented with complaints of tongue swelling and difficulty breathing after taking an antibiotic that was prescribed to her day prior to presentation. Of note, pt had recent urinary tract infection for which she was taking Bactrim. She stopped the medication approximately 1 week ago, but symptoms returned and she was given a cephalosporin antibiotic as an alternative medication. Per family, patient had an immediate reaction within the first 15 minutes of use w ith severe facial rash, facial swelling, throat tightness and shortness of breath. She was emergently intubated for airway protection and admitted for further care. Pulmonary consultation is requested for evaluation and vent management. Review of Systems: Unable to obtain d/t intubated status Past Medical History: Dyslipidemia, diabetes mellitus and UTIs Past Surgical History: None Medications: Reviewed. Allergies: Nitrofurantoin and cephalosporins. Family History: Cerebrovascular accident Diabetes mellitus Social History: Nonsmoker. No alcohol or illicit drug use. Family History: Cerebrovascular accident (CVA) G8 MOTHER Diabetes mellitus G8 MOTHER Allergies: Coded Allergies: Cefuroxime (Verified Allergy, Severe, 05/12/25) ANAPHYLACTIC Cephalosporins (Verified Allergy, Severe, ANAPHYLACTIC REACTION, 05/13/25) Nitrofurantoin (Verified Allergy, Unknown, 12/24/23) Home Meds Active Scripts Epinephrine (Anaphylaxis) (Auvi-Q) 0.1 Mg/0.1 Ml Inj, 0.1 MG IJ O PRN for 1 Day, #1 INJ Prov:ANDREI AWAD MD 05/16/25 Carvedilol (Coreg) 6.25 Mg Tab, 1 TAB PO BID, #60 TAB 5 Refills Prov:ANDREI AWAD MD 05/16/25 Famotidine (PEPCID TABLET) 20 Mg Tb, 1 TAB PO BID for 3 Days, #6 TAB 5 Refills Prov:ANDREI AWAD MD 05/16/25 Prednisone (Prednisone) 20 Mg Tab, 20 MG PO DAILY for 3 Days, #3 MG Prov:ANDREI AWAD MD 05/16/25 Amlodipine Besylate (NORVASC TABLET) 5 Mg Tb, 10 MG PO DAILY for 30 Days, #60 TAB Prov:ANDREI AWAD MD 05/16/25 Reported Medications Ascorbic Acid (VITAMIN C TABLET) 500 Mg Tb, 1 TAB PO DAILY, #30 TAB 3 Refills 06/09/19 Cyanocobalamin (Vitamin B12) 100 Mcg Tab, 100 MCG PO, TAB 06/09/19 Cholecalciferol (VITAMIN D3) 2,000 Unit Tab, 1 TAB PO DAILY, #30 TAB 5 Refills 06/09/19 Multiple Vitamins W/ Minerals (MULTIVITAMIN) Liq, 1 OR, LIQ 06/09/19 Aspirin (Aspir-Low) 81 Mg Tab, 81 MG PO DAILY for 30 Days, MG 06/09/19 Simvastatin (Zocor) 40 Mg Tab, 1 TAB PO DAILY, #90 TAB 1 Refill 06/09/19 Lisinopril (Lisinopril) 2.5 Mg Tab 06/09/19 Metformin Hydrochloride (Metformin Hcl) 1,000 Mg Tab 06/09/19 Current Medications Current Medications Medications (Trade) Dose Ordered Sig/Jonathan Route PRN Reason Start Time Stop Time Status Last Admin Famotidine (Pepcid Injection) 20 mg Q12HR IV 05/11/25 10:00 05/11/25 22:28 Enoxaparin Sodium (Lovenox) 40 mg DAILY SC 05/11/25 10:00 05/11/25 10:09 Dextrose/Sodium Chloride 1,000 ml @ 75 mls/hr [id number] IV 05/11/25 13:15 05/11/25 15:40 DC 05/11/25 14:37 Methylprednisolone Sodium Succinate (Solu Medrol) 60 mg Q6HR IV 05/11/25 13:45 05/11/25 18:45 Zirconium Oxide (Lokelma) 10 gm TID GT 05/11/25 22:00 05/11/25 20:35 DC Sodium Bicarbonate 150 ml/Dextrose 1,150 ml @ 75 mls/hr [id number] IV 05/11/25 15:45 05/11/25 20:48 DC 05/11/25 18:45 Vital Signs Vital Signs Date Time Temp Pulse Resp B/P (MAP) Pulse Ox O2 Delivery O2 Flow Rate FiO2 05/11/25 22:30 77 22 131/71 (91) 96 35 05/11/25 19:00 97.9 97.9 05/11/25 18:30 Mechanical Ventilator+ Physical Exam Gen.: Patient lying in bed in medical ICU. Sedated, intubated on mechanical ventilator. Head: Normocephalic, atraumatic. Eyes: PERRLA. Ears: Normal external anatomy. Throat: Endotracheal tube and orogastric tube in place. Neck: Supple, trachea midline. Chest: Transmitted breath sounds bilaterally. Decreased air entry bilaterally. No wheezing. Bibasilar crackles. Cardiovascular: Positive S1, positive S2. Regular rate and rhythm. Abdomen: Positive bowel sounds in all 4 quadrants. Soft, nontender, nondistended. : Nevarez in place. Normal external genitalia. Rectal: Deferred. Skin: Warm, dry. Intact. Extremities: 2+ radial pulses bilaterally. No lower extremity edema. Neuro: Sedated. Labs/Diagnostic Data Labs Test 05/11/25 17:05 05/11/25 07:11 05/11/25 05:21 05/11/25 03:40 Range/Units Sodium Level 141 136-145 mmol/L Potassium Level 3.9 # 3.5-5.1 mmol/L Chloride Level 108 H 98-107 mmol/L Carbon Dioxide Level 21 20-31 mmol/L Anion Gap 12 5-15 Blood Urea Nitrogen 13 9-23 mg/dL Creatinine 0.80 0.550-1.02 mg/dL Glomerular Filtration Rate Calc 71 >90 mL/min BUN/Creatinine Ratio 16.3 10.0-20.0 Serum Glucose 271 H 74-106 mg/dL Calcium Level 7.7 L 8.7-10.4 mg/dL Blood Gas Specimen Type Arterial Blood Gas Sample Site Right radial Blood Gas Patient Temperature 37.0 Arterial Blood Date Drawn [id number] Arterial Blood pH 7.275 L 7.350-7.450 Arterial Blood Partial Pressure CO2 39.8 32.0-45.0 mmHg Arterial Blood Partial Pressure O2 103.8 83.0-108.0 mmHg Arterial Blood HCO3 18.1 L 21.0-28.0 mmol/L Arterial Blood Oxygen Saturation 97.5 94.0-98.0 % Arterial Blood Base Excess -8.2 L -2.0-3.0 mmol/L Arterial Blood Oxyhemoglobin 95.9 94.0-98.0 % Arterial Blood Carboxyhemoglobin 0.7 0.5-1.5 % Arterial Blood Methemoglobin 0.9 0.0-1.5 % Laron Test Modified Blood Gas Total Hemoglobin 12.30 12.0-16.0 g/dL Blood Gas Set Respiration Rate 20.0 Blood Gas Modality Vent - ac FiO2 % 50.0 Blood Gas Tidal Volume 400.0 Blood Gas PEEP or CPAP 5.0 White Blood Count 21.3 #H 4.4-10.8 10^3/uL Red Blood Count 3.72 L 4.0-5.20 10^6/uL Hemoglobin 11.4 L 12.2-16.2 g/dL Hematocrit 34.2 #L 36.0-46.0 % Mean Corpuscular Volume 91.7 80.0-100.0 fL Mean Corpuscular Hemoglobin 30.7 28.0-32.0 pg Mean Corpuscular Hemoglobin Concent 33.4 32.0-36.0 g/dL Red Cell Distribution Width 15.0 H 11.8-14.3 % Platelet Count 301 140-450 10^3/uL Mean Platelet Volume 7.7 6.9-10.8 fL Neutrophils (%) (Auto) 92.1 H 37.0-80.0 % Lymphocytes (%) (Auto) 3.7 L 10.0-50.0 % Monocytes (%) (Auto) 4.1 0.0-12.0 % Eosinophils (%) (Auto) 0.0 0.0-7.0 % Basophils (%) (Auto) 0.1 0.0-2.0 % Neutrophils # (Auto) 19.6 H 1.6-8.6 10 ^3/uL Lymphocytes # (Auto) 0.8 0.4-5.4 10 ^3/uL Monocytes # (Auto) 0.9 0-1.3 10 ^3/uL Eosinophils # (Auto) 0 0-0.8 10 ^3/uL Basophils # (Auto) 0 0-0.2 10 ^3/uL Nucleated Red Blood Cells 0.0 % Total Bilirubin 0.4 0.2-1.0 mg/dL Aspartate Amino Transferase (AST) 24 13-40 U/L Alanine Aminotransferase (ALT) 29 7-40 U/L Alkaline Phosphatase 40 L 46-116 U/L Total Protein 6.1 5.7-8.2 g/dL Albumin 4.2 3.2-4.8 g/dL Blood Gas Critical Value Read Back Yes Blood Gas Notified Whom giuseppe Bhagat md Blood Gas Notified Time [id number] Blood Gas Notified By Plugger luis felipe Munroe 05/10/25 23:30 05/10/25 20:29 Range/Units Urine Color Colorless Yellow Urine Clarity Turbid H Clear Urine pH 5.5 5.0-9.0 Urine Specific [place] 1.014 1.001-1.035 Urine Protein Trace H Negative Urine Ketones Trace Negative Urine Blood Negative Negative /uL Urine Nitrite Negative Negative Urine Bilirubin Negative Negative Urine Urobilinogen Normal Negative mg/dL Urine Leukocyte Esterase 3+ Negative /uL Urine RBC None seen 0 - 4 /hpf Urine WBC Clumps Present None Seen /hpf Urine Microscopic WBC 288 H 0-5 /HPF Urine Squamous Epithelial Cells None seen <5 /hpf Urine Bacteria Few H None Seen /hpf Urine Glucose Normal Normal mg/dL Differential Total Cells Counted 100.0 100 Neutrophils % (Manual) 30 L 37.0-80.0 Band Neutrophils % (Manual) 1 Lymphocytes % (Manual) 60 H 10.0-50.0 Monocytes % (Manual) 9 0-12 Eosinophils % (Manual) 0 0-7 Basophils % (Manual) 0 0.0-2.0 Metamyelocytes % (manual) 0 Myelocytes % (Manual) 0 Promyelocytes % (Manual) 0 Blast Cells % (Manual) 0 Reactive Lymphocytes 0 Platelet Estimate Adequate Red Blood Cell Morphology Normal Hemoglobin A1c 7.3 H <5.7 % A1C B-Type Natriuretic Peptide 18.11 0-100 pg/mL Microbiology Date/Time Source Procedure Growth Status 05/10/25 21:14 Sputum Gram Stain - Final Resulted 05/10/25 21:14 Sputum Respiratory Culture - Preliminary Resulted Assessment Impression: Acute hypoxic respiratory failure On mechanical ventilator Angioedema Shock Left pleural effusion Atelectasis Metabolic acidosis Plan: s/p intubation on mechanical ventilator. CXR image and report reviewed. Right IJ catheter present, terminating at the right atrium. Endotracheal and enteric tubes are unchanged. Worsening left basilar density, likely combination of airspace disease and pleural effusion. ABG reviewed, notable for acidemia On AC mode; RR 20, VT 400, PEEP 5, FIO2 35% Titrate FIO2 to keep O2 saturation above 90%. VAP bundle. Daily ABG and CXR while intubated Sedate for ventilator synchrony - on Versed drip Fentanyl drip for analgesia On pressors for hemodynamic support Levophed 6 mcg/min Titrate to keep mean arterial pressure greater than 65 mmHg. Improved angioedema Continue steroids IV fluids at 75 ml/hr. Check for air leak in AM. Will consider CPAP once angioedema improves. Monitor renal function Monitor electrolytes. Supplement as necessary. Monitor ins and outs. Maintain euvolemia. GI prophylaxis. DVT prophylaxis. Prognosis: Poor given patient's multiple co-morbidities. Condition: Critical Rest of plan per hospitalist and other consultants. A total of 35 minutes of critical care time was spent reviewing the patient record, examining the patient, making a diagnostic and therapeutic plan, discussing this plan with the medical personnel, following up on diagnostic studies and following the patient for clinical stability excluding any and all procedures. At least 50% of this time was spent in direct, [id number] contact. Thank you, Dr. Dominguez, for allowing me to participate in this patient's care. Further recommendations will depend on the patient's clinical course. Please do not hesitate to contact me if you have any questions or concerns. This medical document was created using an electronic medical record system with [employer] dictation system. Although these documentations are being carefully reviewed, there may still be some phonetic and typographical changes. The errors are purely typographical, due to imperfection on the software program, and do not reflect any compromise in the patient's medical care. Plan discussed with: Other (ISRRAEL Garcia/Dr. Dominguez) SONG LAYTON MD May 11, 2025 22:56
--- NOTE | 2025-05-11 23:19 | DVHSR ---
APPROVED REPORT EXAM: Two-dimensional and M-mode echocardiogram with Doppler and color Doppler. Blood Pressure: 123/49 mmHg INDICATION Heart Failure RISK FACTORS Height: 5'4", Weight: 158 DIMENSIONS LVDd3.2 (3.8-5.7cm)LA (2D)3.6 (1.9-4.0cm)Aortic Root2.6 (2.0-3.7cm) LVDs2.0 (2.5-4.0cm)LA (MM) (1.9-4.0cm)Aortic Cusp Exc1.5 (1.5-2.0cm) EF (%) 67.0 (55-70%)Rt. Atrium (1.9-4.0cm)Asc. Aorta2.3 cm IVSd1.5 (0.7-1.1cm)RV (D) (1.8-2.4cm) PWd0.9 (0.7-1.1cm) Mitral Valve MitralMitral Stenosis E wave0.61m/sMV Mean GR.mmHg A wave1.06m/sMV Peak GR.mmHg E/A ratio0.62D MVAcm2 DECEL [id number] 1/2 Timems Aortic Valve Aortic ValveAortic Stenosis V10.70m/Gopal Mean GR.3mmHg V21.14m/Gopal Peak GR.5mmHg LVOT Diameter1.9 (1.8-2.4cm)Doppler AVA1.74cm2 Pulmonic Valve V20.84m/s Other Information Quality : Technically LimitedRhythm : Technically limited study due to on vent. Conclusion MILD LVH AND MILD LV DIASTOLIC DYSFUNCTION LV EF IS 65% AND IS NORMAL NORMAL VALVES NO EFFUSION NORMAL RV FUNCTION
[2025-05-12] VITALS (106 sets, daily range): BP systolic 91–150; BP diastolic 33–54; PULSE 57–82; RESP 19–21; TEMP 97.5–99.3; O2SAT 95–100
[2025-05-12 03:47] LABS: Hematocrit 31.0 % (36.0-46.0); Hemoglobin 10.5 g/dL (12.2-16.2); Mean Corpuscular Hemoglobin 31.0 pg (28.0-32.0); Mean Corpuscular Volume 91.2 fL (80.0-100.0); Nucleated Red Blood Cells % 0.0 %
[2025-05-12 04:10] LABS: Alanine Aminotransferase 24 U/L (7-40); Anion Gap 14 (5-15); BUN/Creatinine Ratio 17.3 (10.0-20.0); Blood Urea Nitrogen 14 mg/dL (9-23); Carbon Dioxide 21 mmol/L (20-31); Chloride 106 mmol/L (98-107); Potassium 4.3 mmol/L (3.5-5.1); Sodium 141 mmol/L (136-145); Total Protein 6.2 g/dL (5.7-8.2)
[2025-05-12 04:11] LABS: Albumin 4.2 g/dL (3.2-4.8); Bilirubin, Total 0.3 mg/dL (0.2-1.0)
[2025-05-12 04:13] LABS: Alkaline Phosphatase 38 U/L (46-116); Calcium 8.1 mg/dL (8.7-10.4); Glucose 284 mg/dL (74-106)
--- NOTE | 2025-05-12 05:40 | DVH ---
CHEST RADIOGRAPH Indication: vent Technique: Single frontal view of the chest was obtained COMPARISON: XY CHEST XRAY 1 VIEW on DOS: 05/11/25, XY CHEST XRAY 1 VIEW on DOS: 05/10/25, XY CHEST XRAY 1 VIEW on DOS: 05/10/25, XY CHEST XRAY 1 VIEW on DOS: 12/24/23 FINDINGS: Lines and Tubes: Endotracheal tube, enteric catheter and right central venous catheter in satisfactor y position. Lungs: Left lower lobe airspace disease. Pleura: Small left pleural effusion. No pneumothorax. Cardiomediastinal contours: Unremarkable Bones: Unremarkable IMPRESSION: Lines and tubes in satisfactory position. No significant interval change. No significant interval ch paz.
[2025-05-12 07:14] LABS: Base Excess -3.0 mmol/L (-2.0-3.0)
[2025-05-12] MEDS: SODIUM CHLORIDE 0.9% 1,000 ML IV SCH (11:28)
[2025-05-12] MEDS ORDERED: DEXTROSE (50%) 50ML SYRG IV PRN (11:45)
--- NOTE | 2025-05-12 12:11 | DVHPN2 ---
Progress Note Date Seen: May 12, 2025 Medical Necessity Reason Pt with a Central, PICC or Fol: Yes The following are medically ne: Central Line, Nevarez Catheter Subjective Review of Systems: Deferred Objective vital signs Vital Sign Date Time Temp Pulse Resp B/P (MAP) Pulse Ox O2 Delivery O2 Flow Rate FiO2 05/12/25 11:59 66 20 108/46 (66) 97 30 05/12/25 11:15 97.7 207.9 05/12/25 10:00 Mechanical Ventilator+ Total Intake and Output 05/11/25 05/11/25 05/12/25 15:00 23:00 07:00 Intake Total 247.50 ml 506.22 ml 168.75 ml Output Total 1000 ml 1775 ml 1005 ml Balance -752.50 ml -1268.78 ml -836.25 ml medications Current Medications Medications Dose Ordered Sig/Jonathan Route Start Time Stop Time Status Last Admin Dose Admin Fentanyl Citrate 250 ml @ 2.5 mls/hr Q24H IV 05/10/25 21:00 05/12/25 10:09 10 MLS/HR Midazolam HCl 50 ml @ 1 mls/hr Q24H IV 05/10/25 22:00 05/12/25 07:44 5 MLS/HR Norepinephrine Bitartrate 250 ml @ 3.75 mls/hr Q24H IV 05/10/25 22:30 05/12/25 04:33 7.5 MLS/HR Famotidine 20 mg Q12HR IV 05/11/25 10:00 05/12/25 09:25 20 MG Ondansetron HCl 4 mg Q4HP PRN IV 05/10/25 22:30 Enoxaparin Sodium 40 mg DAILY SC 05/11/25 10:00 05/12/25 09:25 40 MG Acetaminophen 650 mg Q6HP PRN PO 05/10/25 22:30 Nitroglycerin 0.4 mg Q5MINP PRN SL 05/10/25 22:30 Morphine Sulfate 2 mg Q30M PRN IV 05/10/25 22:30 Methylprednisolone Sodium Succinate 60 mg Q6HR IV 05/11/25 13:45 05/12/25 11:28 60 MG Sodium Chloride 1,000 ml @ 60 mls/hr [id number] IV 05/12/25 10:30 05/12/25 11:28 60 MLS/HR Diagnostic Test (Pha) 1 strip Q6HR 05/12/25 12:00 UNV Insulin Human Regular Q6HR SC 05/12/25 12:00 UNV Dextrose 50 ml UD PRN IV 05/12/25 11:45 UNV Examination: GENERAL:Abnormal, LUNGS:Abnormal, SKIN:Abnormal laboratory and microbiology Laboratory Tests 05/12/25 03:23 Test 05/12/25 03:23 Range/Units Serum Glucose 284 H 74-106 mg/dL Microbiology Date/Time Source Procedure Growth Status 05/10/25 21:14 Sputum Gram Stain - Final Resulted 05/10/25 21:14 Sputum Respiratory Culture - Preliminary Resulted Problem List/Assessment/Plan Problem List/Assessment/Plan 89-year-old female past medical history of hypertension and urinary tract infection developed a severe anaphylactic reaction to cephalosporin antibiotic which resulted in respiratory failure. Nephrology consulted for hyperkalemia Preserved renal function Hyperkalemia Anaphylactic reaction Respiratory failure Hyperkalemia has resolved gentle IVF pulm on case s/p IV steroids , facial swelling has improved monitor potassium closely Hold lisinopril home medication at this time Monitor and check potassium and magnesium level daily Case discussed with ICU nurse at bedside Case discussed with family at bedside Plan discussed with: Other My Orders My Orders Orders - EUSEBIO GOODEN MD Procedure Category Date Status Time Sodium Chloride 0.9% PHA 05/12/25 In Process 10:30 Total Time (mins): 33 EUSEBIO GOODEN MD May 12, 2025 12:11
--- NOTE | 2025-05-12 12:17 | DVHPN2 ---
Progress Note - Dictate Date Seen: May 12, 2025 Medical Necessity Reason Pt with a Central, PICC or Fol: Yes The following are medically ne: Central Line, Nevarez Catheter vital signs Vital Sign Date Time Temp Pulse Resp B/P (MAP) Pulse Ox O2 Delivery O2 Flow Rate FiO2 05/12/25 11:59 66 20 108/46 (66) 97 30 05/12/25 11:15 97.7 207.9 05/12/25 10:00 Mechanical Ventilator+ Total Intake and Output 05/11/25 05/11/25 05/12/25 15:00 23:00 07:00 Intake Total 247.50 ml 506.22 ml 168.75 ml Output Total 1000 ml 1775 ml 1005 ml Balance -752.50 ml -1268.78 ml -836.25 ml medications Current Medications Medications Dose Ordered Sig/Jonathan Route Start Time Stop Time Status Last Admin Dose Admin Fentanyl Citrate 250 ml @ 2.5 mls/hr Q24H IV 05/10/25 21:00 05/12/25 10:09 10 MLS/HR Midazolam HCl 50 ml @ 1 mls/hr Q24H IV 05/10/25 22:00 05/12/25 07:44 5 MLS/HR Norepinephrine Bitartrate 250 ml @ 3.75 mls/hr Q24H IV 05/10/25 22:30 05/12/25 04:33 7.5 MLS/HR Famotidine 20 mg Q12HR IV 05/11/25 10:00 05/12/25 09:25 20 MG Ondansetron HCl 4 mg Q4HP PRN IV 05/10/25 22:30 Enoxaparin Sodium 40 mg DAILY SC 05/11/25 10:00 05/12/25 09:25 40 MG Acetaminophen 650 mg Q6HP PRN PO 05/10/25 22:30 Nitroglycerin 0.4 mg Q5MINP PRN SL 05/10/25 22:30 Morphine Sulfate 2 mg Q30M PRN IV 05/10/25 22:30 Methylprednisolone Sodium Succinate 60 mg Q6HR IV 05/11/25 13:45 05/12/25 11:28 60 MG Sodium Chloride 1,000 ml @ 60 mls/hr [id number] IV 05/12/25 10:30 05/12/25 11:28 60 MLS/HR Diagnostic Test (Pha) 1 strip Q6HR 05/12/25 12:00 UNV Insulin Human Regular Q6HR SC 05/12/25 12:00 UNV Dextrose 50 ml UD PRN IV 05/12/25 11:45 UNV laboratory and microbiology Laboratory Tests 05/12/25 03:23 Test 05/12/25 03:23 Range/Units Serum Glucose 284 H 74-106 mg/dL Assessment/Plan Acute hypoxic respiratory failure On mechanical ventilator Angioedema Shock events pt intubated for airway protection anaphylaxis secondary to cephalosporins peep 5 30% vent settings ac mode abg reviewed CXR reviewed Plan: daily sedation holidays and weaning trials check for cuff leak VAP bundle. Daily ABG and CXR while intubated Fentanyl drip for analgesia On pressors for hemodynamic support Levophed 6 mcg/min Titrate to keep mean arterial pressure greater than 65 mmHg. Improved angioedema Continue steroids IV fluids at 75 ml/hr. Check for air leak in AM. Will consider CPAP once angioedema improves. Monitor renal function Monitor electrolytes. Supplement as necessary. Monitor ins and outs. Maintain euvolemia. GI prophylaxis. DVT prophylaxis. Prognosis: Poor given patient's multiple co-morbidities. Condition: Critical crit care time 35 min Plan discussed with: Other (rn) AMNA MORILLO MD May 12, 2025 12:17
[2025-05-12] MEDS: InsuLIN REG 1unit/0.01ml Soln (100units/ml) SC SCH (13:36)
[2025-05-12] MEDS: ACCU-CHEK COMFORT CURVE STRIP VI SCH (13:36)
--- NOTE | 2025-05-12 21:17 | DVHPN2 ---
Subjective Patient's tongue swelling has significantly improved. She is on minimal amount of FiO2 however remains intubated due to respiratory compromise from an anaphylactic reaction from antibiotic. 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 Changes from previous H/P or p: No Changes Objective Vitals Vital Signs Date Time Temp Pulse Resp B/P (MAP) Pulse Ox O2 Delivery O2 Flow Rate FiO2 05/12/25 20:22 58 20 127/46 (73) 96 30 05/12/25 18:15 97.7 207.9 05/12/25 18:00 Mechanical Ventilator+ Intake/Output Intake and Output 05/12/25 07:00 Intake Total 922.47 ml Output Total 3780 ml Balance -2857.53 ml Intake Oral 0 ml IV Total 922.47 ml Output Urine Total 3780 ml Exam Sedated comfortable on ventilator without any acute cardiopulmonary distress. HEENT notable for enlarged/thick tongue. Pupils equal round react to light. Neck supple no JVD. Heart regular rate and rhythm S1-S2. Lungs fair air movement without rales wheezes. Abdomen soft nontender positive bowel sounds. Extremities no edema positive pulses. Medications Current Medications Medications Dose Ordered Sig/Jonathan Route Start Time Stop Time Status Last Admin Dose Admin Fentanyl Citrate 250 ml @ 2.5 mls/hr Q24H IV 05/10/25 21:00 05/12/25 10:09 10 MLS/HR Midazolam HCl 50 ml @ 1 mls/hr Q24H IV 05/10/25 22:00 05/12/25 17:13 5 MLS/HR Norepinephrine Bitartrate 250 ml @ 3.75 mls/hr Q24H IV 05/10/25 22:30 05/12/25 04:33 7.5 MLS/HR Famotidine 20 mg Q12HR IV 05/11/25 10:00 05/12/25 09:25 20 MG Ondansetron HCl 4 mg Q4HP PRN IV 05/10/25 22:30 Enoxaparin Sodium 40 mg DAILY SC 05/11/25 10:00 05/12/25 09:25 40 MG Acetaminophen 650 mg Q6HP PRN PO 05/10/25 22:30 Nitroglycerin 0.4 mg Q5MINP PRN SL 05/10/25 22:30 Morphine Sulfate 2 mg Q30M PRN IV 05/10/25 22:30 Methylprednisolone Sodium Succinate 60 mg Q6HR IV 05/11/25 13:45 05/12/25 17:15 60 MG Sodium Chloride 1,000 ml @ 60 mls/hr [id number] IV 05/12/25 10:30 05/12/25 11:28 60 MLS/HR Diagnostic Test (Pha) 1 strip Q6HR 05/12/25 12:00 05/12/25 17:11 1 STRIP Insulin Human Regular Q6HR SC 05/12/25 12:00 05/12/25 17:16 3 UNITS Dextrose 50 ml UD PRN IV 05/12/25 11:45 Levofloxacin 50 ml @ 50 mls/hr DAILY@1300 IV 05/13/25 13:00 Laboratory Results Laboratory Tests 05/12/25 03:23 Chemistry Test 05/12/25 03:23 Albumin 4.2 g/dL (3.2-4.8) Calcium Level 8.1 mg/dL (8.7-10.4) L Total Protein 6.2 g/dL (5.7-8.2) LFT Test 05/12/25 03:23 Alanine Aminotransferase (ALT) 24 U/L (7-40) Alkaline Phosphatase 38 U/L (46-116) L Aspartate Amino Transferase (AST) 13 U/L (13-40) Total Bilirubin 0.3 mg/dL (0.2-1.0) Urinalysis Test 05/10/25 23:30 Urine Color Colorless (Yellow) Urine Clarity Turbid (Clear) H Urine pH 5.5 (5.0-9.0) Urine Specific [place] 1.014 (1.001-1.035) Urine Protein Trace (Negative) H Urine Ketones Trace (Negative) Urine Blood Negative /uL (Negative) Urine Nitrite Negative (Negative) Urine Bilirubin Negative (Negative) Urine Urobilinogen Normal mg/dL (Negative) Urine Leukocyte Esterase 3+ /uL (Negative) Urine RBC None seen /hpf (0 - 4) Urine WBC Clumps Present /hpf (None Seen) Urine Microscopic WBC 288 /HPF (0-5) H Urine Squamous Epithelial Cells None seen /hpf (<5) Urine Bacteria Few /hpf (None Seen) H Urine Glucose Normal mg/dL (Normal) Blood Gas Results Test 05/12/25 07:03 Arterial Blood pH 7.350 (7.350-7.450) FiO2 % 30.0 Microbiology Microbiology Date/Time Source Procedure Growth Status 05/11/25 00:00 Nose MRSA Screen - Final Complete 05/10/25 21:14 Sputum Gram Stain - Final Resulted 05/10/25 21:14 Sputum Respiratory Culture - Preliminary Resulted Assessment/Plan Assessment/Plan We will start her on IV antibiotic for her urinary tract infection. Follow the urine cultures. Continue current ventilator management. Given her blood sugars are elevated from steroids we will start her on sliding scale insulin. Patient had echocardiogram done shows a normal ejection fraction. Continue rest of supportive care and treatment as she is on. Further clinical management per clinical course and recommendations from the consultants. Discussed with the nurse at bedside regarding care plan. Plan discussed with: Other My Orders Orders - DEJON ORTEZ MD Procedure Category Date Status Time Urine Bacterial KASSIE 05/11/25 In Process Culture 23:17 Levofloxacin 250mg PHA 05/13/25 In Process (Levaquin 250mg) 13:00 * Infectious [place]- CONS 05/12/25 Transmitted Leora Sanchez 18:55 Mrsa Screen KASSIE 05/12/25 In Process 09:30 Problem List: (1) Anaphylactic shock (2) Diabetes Date of Service: May 12, 2025 Billing Provider: DEJON ORTEZ MD Common Visit Codes: [id number] INP/OBS CARE(MOD) DEJON ORTEZ MD May 12, 2025 21:17
[2025-05-13] VITALS (75 sets, daily range): BP systolic 125–192; BP diastolic 41–102; PULSE 56–146; RESP 8–25; TEMP 97.7–99.1; O2SAT 93–98
[2025-05-13 03:53] LABS: Hematocrit 28.7 % (36.0-46.0); Hemoglobin 9.7 g/dL (12.2-16.2); Mean Corpuscular Hemoglobin 30.4 pg (28.0-32.0); Mean Corpuscular Volume 90.0 fL (80.0-100.0); Nucleated Red Blood Cells % 0.1 %
[2025-05-13 04:24] LABS: Alanine Aminotransferase 19 U/L (7-40); Albumin 3.7 g/dL (3.2-4.8); Anion Gap 11 (5-15); BUN/Creatinine Ratio 32.8 (10.0-20.0); Blood Urea Nitrogen 20 mg/dL (9-23); Carbon Dioxide 24 mmol/L (20-31); Chloride 107 mmol/L (98-107); Potassium 3.9 mmol/L (3.5-5.1); Sodium 142 mmol/L (136-145)
[2025-05-13 04:26] LABS: Alkaline Phosphatase 33 U/L (46-116); Bilirubin, Total 0.3 mg/dL (0.2-1.0); Calcium 7.9 mg/dL (8.7-10.4); Glucose 195 mg/dL (74-106); Total Protein 5.4 g/dL (5.7-8.2)
--- NOTE | 2025-05-13 06:27 | DVH ---
EXAM: XY CHEST PORTABLE HISTORY: vent COMPARISON: XY CHEST PORTABLE on DOS: 05/12/25, XY CHEST XRAY 1 VIEW on DOS: 05/11/25, XY CHEST XRAY 1 EW on DOS: 05/10/25, XY CHEST XRAY 1 VIEW on DOS: 05/10/25, XY CHEST XRAY 1 VIEW on DOS: 12/24/23 TECHNIQUE: Portable AP view of the chest was performed. FINDINGS: Tracheal tube is re-identified with its tip 3.5 cm above the nima. OG tube and right IJ central marvin e are re-identified. There are diffuse interstitial opacities throughout the right lung. There is de nse opacity in the left lung base obscuring the left hemidiaphragm and left heart border. No pneumoth orax. The heart is enlarged. The aortic arch is calcific. IMPRESSION: 1. Mechanical ventilation with tubes and lines as above. 2. Left basilar consolidation and/or effusion obscuring the left hemidiaphragm and left heart border. 3. Diffuse interstitial opacities throughout the right lung are increased since the previous day. Th is appearance is most suggestive of interstitial pneumonia.
[2025-05-13] MEDS: DEXMEDETOMIDINE HCL IN D5W 100 ML IV SCH (09:43)
[2025-05-13 11:31] LABS: Base Excess -2.9 mmol/L (-2.0-3.0)
--- NOTE | 2025-05-13 15:42 | DVHPN2 ---
Progress Note - Dictate Date Seen: May 13, 2025 Medical Necessity Reason Pt with a Central, PICC or Fol: Yes The following are medically ne: Central Line, [place]arez Catheter vital signs Vital Sign Date Time Temp Pulse Resp B/P (MAP) Pulse Ox O2 Delivery O2 Flow Rate FiO2 05/13/25 13:45 98.8 93 14 192/90 (124) 94 209.8 05/13/25 12:00 8.0 05/13/25 12:00 Mechanical Ventilator+ 30 30 Total Intake and Output 05/12/25 05/12/25 05/13/25 15:00 23:00 07:00 Intake Total 367.50 ml 600 ml 562.5 ml Output Total 475 ml 770 ml Balance 367.50 ml 125 ml -207.5 ml medications Current Medications Medications Dose Ordered Sig/Jonathan Route Start Time Stop Time Status Last Admin Dose Admin Fentanyl Citrate 250 ml @ 2.5 mls/hr Q24H IV 05/10/25 21:00 05/12/25 10:09 10 MLS/HR Midazolam HCl 50 ml @ 1 mls/hr Q24H IV 05/10/25 22:00 05/13/25 03:22 5 MLS/HR Norepinephrine Bitartrate 250 ml @ 3.75 mls/hr Q24H IV 05/10/25 22:30 05/12/25 04:33 7.5 MLS/HR Famotidine 20 mg Q12HR IV 05/11/25 10:00 05/13/25 09:42 20 MG Ondansetron HCl 4 mg Q4HP PRN IV 05/10/25 22:30 Enoxaparin Sodium 40 mg DAILY SC 05/11/25 10:00 05/13/25 09:42 40 MG Acetaminophen 650 mg Q6HP PRN PO 05/10/25 22:30 Nitroglycerin 0.4 mg Q5MINP PRN SL 05/10/25 22:30 Morphine Sulfate 2 mg Q30M PRN IV 05/10/25 22:30 Methylprednisolone Sodium Succinate 60 mg Q6HR IV 05/11/25 13:45 05/13/25 12:15 60 MG Sodium Chloride 1,000 ml @ 60 mls/hr [id number] IV 05/12/25 10:30 05/13/25 03:10 60 MLS/HR Diagnostic Test (Pha) 1 strip Q6HR 05/12/25 12:00 05/13/25 12:15 1 STRIP Insulin Human Regular Q6HR SC 05/12/25 12:00 05/13/25 12:17 3 UNITS Dextrose 50 ml UD PRN IV 05/12/25 11:45 Levofloxacin 50 ml @ 50 mls/hr DAILY@1300 IV 05/13/25 13:00 05/13/25 12:47 50 MLS/HR laboratory and microbiology Laboratory Tests 05/13/25 03:26 Test 05/13/25 03:26 Range/Units Serum Glucose 195 H 74-106 mg/dL Assessment/Plan Acute hypoxic respiratory failure On mechanical ventilator Angioedema Shock events pt intubated for airway protection anaphylaxis secondary to cephalosporins positive cuff leak peep 5 30% vent settings ac mode abg reviewed CXR reviewed Plan: daily sedation holidays and weaning trials check for cuff leak VAP bundle. Daily ABG and CXR while intubated Fentanyl drip for analgesia Pressors for hemodynamic support Titrate to keep mean arterial pressure greater than 65 mmHg. Continue steroids Continue benadryl and pepcid Monitor renal function Monitor electrolytes. Supplement as necessary. Monitor ins and outs. Maintain euvolemia. GI prophylaxis. DVT prophylaxis. Prognosis: Poor given patient's multiple co-morbidities. Condition: Critical crit care time 35 min Dietary Evaluation Review Comments: 1) If patient remains NPO > 7 days, consider EN/TPN to meet at least 75% of estimated daily needs 2) If GI is preferred, consider Glucerna 1.2 @ 50 mL goal rate as tolerated. Flush with 150 mL free H2O Q6H. TF regimen will provide 1440 kcals, 72g Pro, and 1566 mL free H2O (including TF flushes) per 24 hrs. Goal rate will meet ~ 94% estimated energy needs and 73% estimated protein needs. 3) Advance to 60g CCHO cardiac diet when medically feasible, pending ST approval 4) Follow-up with neurology, cardiology, and pulmonology 5) Continue to monitor I&O, labs, and skin integrity Expected Outcomes/Goals: 1) patient to receive nutrition support within 7 days of NPO status 2) labs to improve 3) diet to advance 4) f/u in 2-3 days Plan discussed with: Other (Rn) AMNA MORILLO MD May 13, 2025 15:42
--- NOTE | 2025-05-13 18:31 | DVHPN2 ---
Progress Note Date Seen: May 13, 2025 Medical Necessity Reason Pt with a Central, PICC or Fol: Yes The following are medically ne: Central Line, Nevarez Catheter Subjective Patient reports: Feels better Changes from previous H/P or p: Changes (extubated) Objective vital signs Vital Sign Date Time Temp Pulse Resp B/P (MAP) Pulse Ox O2 Delivery O2 Flow Rate FiO2 05/13/25 18:00 16 95 Nasal Cannula* 3 32 05/13/25 18:00 61 05/13/25 17:00 99.1 160/63 (95) 210.4 Total Intake and Output 05/12/25 05/12/25 05/13/25 14:59 22:59 06:59 Intake Total 311.25 ml 600 ml 575.0 ml Output Total 475 ml 770 ml Balance 311.25 ml 125 ml -195.0 ml medications Current Medications Medications Dose Ordered Sig/Jonathan Route Start Time Stop Time Status Last Admin Dose Admin Fentanyl Citrate 250 ml @ 2.5 mls/hr Q24H IV 05/10/25 21:00 05/12/25 10:09 10 MLS/HR Midazolam HCl 50 ml @ 1 mls/hr Q24H IV 05/10/25 22:00 05/13/25 03:22 5 MLS/HR Norepinephrine Bitartrate 250 ml @ 3.75 mls/hr Q24H IV 05/10/25 22:30 05/12/25 04:33 7.5 MLS/HR Famotidine 20 mg Q12HR IV 05/11/25 10:00 05/13/25 09:42 20 MG Ondansetron HCl 4 mg Q4HP PRN IV 05/10/25 22:30 Enoxaparin Sodium 40 mg DAILY SC 05/11/25 10:00 05/13/25 09:42 40 MG Acetaminophen 650 mg Q6HP PRN PO 05/10/25 22:30 Nitroglycerin 0.4 mg Q5MINP PRN SL 05/10/25 22:30 Morphine Sulfate 2 mg Q30M PRN IV 05/10/25 22:30 Methylprednisolone Sodium Succinate 60 mg Q6HR IV 05/11/25 13:45 05/13/25 17:55 60 MG Sodium Chloride 1,000 ml @ 60 mls/hr [id number] IV 05/12/25 10:30 05/13/25 03:10 60 MLS/HR Diagnostic Test (Pha) 1 strip Q6HR 05/12/25 12:00 05/13/25 17:55 1 STRIP Insulin Human Regular Q6HR SC 05/12/25 12:00 05/13/25 18:06 6 UNITS Dextrose 50 ml UD PRN IV 05/12/25 11:45 Levofloxacin 50 ml @ 50 mls/hr DAILY@1300 IV 05/13/25 13:00 05/13/25 12:47 50 MLS/HR Examination: GENERAL:Normal, LUNGS:Normal, CVS:Normal laboratory and microbiology Laboratory Tests 05/13/25 03:26 Test 05/13/25 03:26 Range/Units Serum Glucose 195 H 74-106 mg/dL Microbiology Date/Time Source Procedure Growth Status 05/12/25 09:30 Nose MRSA Screen - Final Complete 05/12/25 09:30 Urine - [place] Urine Culture - Preliminary Resulted 05/10/25 21:14 Sputum Gram Stain - Final Complete 05/10/25 21:14 Respiratory Culture - Final Klebsiella pneumoniae Complete Problem List/Assessment/Plan Problem List/Assessment/Plan 89-year-old female past medical history of hypertension and urinary tract infection developed a severe anaphylactic reaction to cephalosporin antibiotic which resulted in respiratory failure. Nephrology consulted for hyperkalemia Preserved renal function Hyperkalemia resolved Anaphylactic reaction Respiratory failure now extubated hypertension Hyperkalemia has resolved DC IVF, ALICIA resolved lasix pulm on case s/p IV steroids , facial swelling has improved Hold lisinopril home medication at this time , use norvasc Plan discussed with: Patient Dietary Evaluation Review Comments: 1) If patient remains NPO > 7 days, consider EN/TPN to meet at least 75% of estimated daily needs 2) If GI is preferred, consider Glucerna 1.2 @ 50 mL goal rate as tolerated. Flush with 150 mL free H2O Q6H. TF regimen will provide 1440 kcals, 72g Pro, and 1566 mL free H2O (including TF flushes) per 24 hrs. Goal rate will meet ~ 94% estimated energy needs and 73% estimated protein needs. 3) Advance to 60g CCHO cardiac diet when medically feasible, pending ST approval 4) Follow-up with neurology, cardiology, and pulmonology 5) Continue to monitor I&O, labs, and skin integrity Expected Outcomes/Goals: 1) patient to receive nutrition support within 7 days of NPO status 2) labs to improve 3) diet to advance 4) f/u in 2-3 days Total Time (mins): 33 EUSEBIO GOODEN MD May 13, 2025 18:31
--- NOTE | 2025-05-13 18:32 | DVHPN2 ---
Subjective Overnight events noted. This patient was admitted for anaphylactic shock secondary to severe drug allergic reaction to Ceftin. Patient and patient's family member said that she has tolerated penicillin /cephalosporin in the past without any tr allergic reaction. 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 Medications Current Medications Medications Dose Ordered Sig/Jonathan Route Start Time Stop Time Status Last Admin Dose Admin Fentanyl Citrate 250 ml @ 2.5 mls/hr Q24H IV 05/10/25 21:00 05/12/25 10:09 10 MLS/HR Midazolam HCl 50 ml @ 1 mls/hr Q24H IV 05/10/25 22:00 05/13/25 03:22 5 MLS/HR Norepinephrine Bitartrate 250 ml @ 3.75 mls/hr Q24H IV 05/10/25 22:30 05/12/25 04:33 7.5 MLS/HR Famotidine 20 mg Q12HR IV 05/11/25 10:00 05/13/25 09:42 20 MG Ondansetron HCl 4 mg Q4HP PRN IV 05/10/25 22:30 Enoxaparin Sodium 40 mg DAILY SC 05/11/25 10:00 05/13/25 09:42 40 MG Acetaminophen 650 mg Q6HP PRN PO 05/10/25 22:30 Nitroglycerin 0.4 mg Q5MINP PRN SL 05/10/25 22:30 Morphine Sulfate 2 mg Q30M PRN IV 05/10/25 22:30 Methylprednisolone Sodium Succinate 60 mg Q6HR IV 05/11/25 13:45 05/13/25 17:55 60 MG Sodium Chloride 1,000 ml @ 60 mls/hr [id number] IV 05/12/25 10:30 05/13/25 03:10 60 MLS/HR Diagnostic Test (Pha) 1 strip Q6HR 05/12/25 12:00 05/13/25 17:55 1 STRIP Insulin Human Regular Q6HR SC 05/12/25 12:00 05/13/25 18:06 6 UNITS Dextrose 50 ml UD PRN IV 05/12/25 11:45 Levofloxacin 50 ml @ 50 mls/hr DAILY@1300 IV 05/13/25 13:00 05/13/25 12:47 50 MLS/HR Laboratory Results Laboratory Tests 05/13/25 03:26 Chemistry Test 05/13/25 03:26 Albumin 3.7 g/dL (3.2-4.8) Calcium Level 7.9 mg/dL (8.7-10.4) L Total Protein 5.4 g/dL (5.7-8.2) L LFT Test 05/13/25 03:26 Alanine Aminotransferase (ALT) 19 U/L (7-40) Alkaline Phosphatase 33 U/L (46-116) L Aspartate Amino Transferase (AST) 13 U/L (13-40) Total Bilirubin 0.3 mg/dL (0.2-1.0) Urinalysis Test 05/10/25 23:30 Urine Color Colorless (Yellow) Urine Clarity Turbid (Clear) H Urine pH 5.5 (5.0-9.0) Urine Specific [place] 1.014 (1.001-1.035) Urine Protein Trace (Negative) H Urine Ketones Trace (Negative) Urine Blood Negative /uL (Negative) Urine Nitrite Negative (Negative) Urine Bilirubin Negative (Negative) Urine Urobilinogen Normal mg/dL (Negative) Urine Leukocyte Esterase 3+ /uL (Negative) Urine RBC None seen /hpf (0 - 4) Urine WBC Clumps Present /hpf (None Seen) Urine Microscopic WBC 288 /HPF (0-5) H Urine Squamous Epithelial Cells None seen /hpf (<5) Urine Bacteria Few /hpf (None Seen) H Urine Glucose Normal mg/dL (Normal) Blood Gas Results Test 05/13/25 11:26 Arterial Blood pH 7.447 (7.350-7.450) FiO2 % 30.0 Microbiology Microbiology Date/Time Source Procedure Growth Status 05/12/25 09:30 Nose MRSA Screen - Final Complete 05/12/25 09:30 Urine - [place] Urine Culture - Preliminary Resulted 05/10/25 21:14 Sputum Gram Stain - Final Complete 05/10/25 21:14 Respiratory Culture - Final Klebsiella pneumoniae Complete Assessment/Plan Assessment/Plan 89-year-old female with a known history of diabetes mellitus type 2, hypertension, dyslipidemia, recently treated for UTI with the Bactrim for seven days, started having symptoms of dysuria was given Ceftin antibiotic by the PCP developed anaphylactic allergic reaction eventually was brought in by paramedics status post intubation in the ER, patient is currently status post extubation on05/13. 1. Anaphylactic shock secondary to drug allergic reaction status post intubation, status post extubation 2. Acute hypoxic respiratory failure secondary to anaphylactic shock status post intubation, extubation on05/13, currently on nasal cannula for O2 supplementation 3. Recurrent UTI, on Levaquin 4. Diabetes mellitus type 2 5. Hypertension 6. Dyslipidemia -continue O2 supplementation, PT evaluation and treatment, continue-antibiotics Plan of care discussed with the patient and patient's bedside RN as well as patient's family members at bedside. Plan discussed with: Patient, Other My Orders Orders - ANDREI AWAD MD Procedure Category Date Status Time Communication Order ORDERS 05/13/25 Transmitted 15:20 Date of Service: May 13, 2025 Billing Provider: ANDREI AWAD MD Common Visit Codes: [id number] INP/OBS CARE(HIGH) ANDREI AWAD MD May 13, 2025 18:31
[2025-05-13] MEDS: FUROSEMIDE 40 MG/4 ML VIAL IV ONE (18:52)
[2025-05-14] VITALS (43 sets, daily range): BP systolic 120–182; BP diastolic 46–80; PULSE 52–94; RESP 12–24; TEMP 97.2–98.7; O2SAT 94–98
--- NOTE | 2025-05-14 04:01 | DVH ---
CHEST RADIOGRAPH Indication: vent Technique: Single frontal view of the chest was obtained COMPARISON: XY CHEST PORTABLE on DOS: 05/13/25, XY CHEST PORTABLE on DOS: 05/12/25, XY CHEST XRAY 1 VIEW on DOS: 05/11/25, XY CHEST XRAY 1 VIEW on DOS: 05/10/25, XY CHEST XRAY 1 VIEW on DOS: 05/10/25 FINDINGS: Lines and Tubes: Status post interval extubation and removal of enteric catheter. Right internal jug ular central venous catheter unchanged. Lungs: Clear Pleura: No effusion. No pneumothorax. Cardiomediastinal contours: Cardiomegaly. Bones: Unremarkable IMPRESSION: 1. Cardiomegaly. 2. Status post interval extubation and removal of enteric catheter. Right IJ catheter unchanged.
[2025-05-14 04:04] LABS: Hematocrit 32.2 % (36.0-46.0); Hemoglobin 11.2 g/dL (12.2-16.2); Mean Corpuscular Hemoglobin 30.9 pg (28.0-32.0); Mean Corpuscular Volume 88.7 fL (80.0-100.0); Nucleated Red Blood Cells % 0.0 %
[2025-05-14 04:32] LABS: Alanine Aminotransferase 29 U/L (7-40); Albumin 4.4 g/dL (3.2-4.8); Anion Gap 12 (5-15); BUN/Creatinine Ratio 31.9 (10.0-20.0); Bilirubin, Total 0.5 mg/dL (0.2-1.0); Blood Urea Nitrogen 22 mg/dL (9-23); Carbon Dioxide 27 mmol/L (20-31); Chloride 100 mmol/L (98-107); Sodium 139 mmol/L (136-145); Total Protein 6.2 g/dL (5.7-8.2)
[2025-05-14 04:33] LABS: Alkaline Phosphatase 40 U/L (46-116); Calcium 8.4 mg/dL (8.7-10.4); Glucose 162 mg/dL (74-106); Potassium 2.8 mmol/L (3.5-5.1)
[2025-05-14] MEDS: POTASSIUM EFFERVESENT TAB 25 MEQ GT ONE (08:12)
--- NOTE | 2025-05-14 10:49 | DVHPN2 ---
Subjective Overnight events noted. This patient was admitted for anaphylactic shock secondary to severe drug allergic reaction to Ceftin. Patient and patient's family member said that she has tolerated penicillin /cephalosporin in the past without any allergic reaction. 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 Medications Current Medications Medications Dose Ordered Sig/Jonathan Route Start Time Stop Time Status Last Admin Dose Admin Fentanyl Citrate 250 ml @ 2.5 mls/hr Q24H IV 05/10/25 21:00 05/12/25 10:09 10 MLS/HR Midazolam HCl 50 ml @ 1 mls/hr Q24H IV 05/10/25 22:00 05/13/25 03:22 5 MLS/HR Norepinephrine Bitartrate 250 ml @ 3.75 mls/hr Q24H IV 05/10/25 22:30 05/12/25 04:33 7.5 MLS/HR Famotidine 20 mg Q12HR IV 05/11/25 10:00 05/14/25 09:58 20 MG Ondansetron HCl 4 mg Q4HP PRN IV 05/10/25 22:30 Enoxaparin Sodium 40 mg DAILY SC 05/11/25 10:00 05/14/25 09:58 40 MG Acetaminophen 650 mg Q6HP PRN PO 05/10/25 22:30 Nitroglycerin 0.4 mg Q5MINP PRN SL 05/10/25 22:30 Morphine Sulfate 2 mg Q30M PRN IV 05/10/25 22:30 Methylprednisolone Sodium Succinate 60 mg Q6HR IV 05/11/25 13:45 05/14/25 06:37 60 MG Diagnostic Test (Pha) 1 strip Q6HR 05/12/25 12:00 05/14/25 06:00 1 STRIP Insulin Human Regular Q6HR SC 05/12/25 12:00 05/14/25 06:29 3 UNITS Dextrose 50 ml UD PRN IV 05/12/25 11:45 Levofloxacin 50 ml @ 50 mls/hr DAILY@1300 IV 05/13/25 13:00 05/13/25 12:47 50 MLS/HR Amlodipine Besylate 5 mg DAILY PO 05/13/25 18:30 05/14/25 09:58 5 MG Laboratory Results Laboratory Tests 05/14/25 03:39 Chemistry Test 05/14/25 03:39 Albumin 4.4 g/dL (3.2-4.8) Calcium Level 8.4 mg/dL (8.7-10.4) L Total Protein 6.2 g/dL (5.7-8.2) LFT Test 05/14/25 03:39 Alanine Aminotransferase (ALT) 29 U/L (7-40) Alkaline Phosphatase 40 U/L (46-116) L Aspartate Amino Transferase (AST) 33 U/L (13-40) Total Bilirubin 0.5 mg/dL (0.2-1.0) Urinalysis Test 05/10/25 23:30 Urine Color Colorless (Yellow) Urine Clarity Turbid (Clear) H Urine pH 5.5 (5.0-9.0) Urine Specific [place] 1.014 (1.001-1.035) Urine Protein Trace (Negative) H Urine Ketones Trace (Negative) Urine Blood Negative /uL (Negative) Urine Nitrite Negative (Negative) Urine Bilirubin Negative (Negative) Urine Urobilinogen Normal mg/dL (Negative) Urine Leukocyte Esterase 3+ /uL (Negative) Urine RBC None seen /hpf (0 - 4) Urine WBC Clumps Present /hpf (None Seen) Urine Microscopic WBC 288 /HPF (0-5) H Urine Squamous Epithelial Cells None seen /hpf (<5) Urine Bacteria Few /hpf (None Seen) H Urine Glucose Normal mg/dL (Normal) Blood Gas Results Test 05/13/25 11:26 Arterial Blood pH 7.447 (7.350-7.450) FiO2 % 30.0 Microbiology Microbiology Date/Time Source Procedure Growth Status 05/12/25 09:30 Nose MRSA Screen - Final Complete 05/12/25 09:30 Urine - [place] Urine Culture - Final Escherichia coli - ESBL Complete 05/10/25 21:14 Sputum Gram Stain - Final Complete 05/10/25 21:14 Respiratory Culture - Final Klebsiella pneumoniae Complete Assessment/Plan Assessment/Plan 89-year-old female with a known history of diabetes mellitus type 2, hypertension, dyslipidemia, recently treated for UTI with the Bactrim for seven days, started having symptoms of dysuria was given Ceftin antibiotic by the PCP developed anaphylactic allergic reaction eventually was brought in by paramedics status post intubation in the ER, patient is currently status post extubation on05/13. 1. Anaphylactic shock secondary to drug allergic reaction status post intubation, status post extubation 2. Acute hypoxic respiratory failure secondary to anaphylactic shock status post intubation, extubation on05/13, currently on nasal cannula for O2 supplementation 3. Recurrent UTI, on Levaquin 4. Diabetes mellitus type 2 5. Hypertension 6. Dyslipidemia -downgraded to telemetry, -continue O2 supplementation by nasal cannula, PT evaluation and treatment, continue-antibiotics Plan of care discussed with the patient and patient's bedside RN as well as patient's family members at bedside. Plan discussed with: Patient, Other My Orders Orders - ANDREI AWAD MD Procedure Category Date Status Time Communication Order ORDERS 05/13/25 Transmitted 15:20 Regular Diet DIET 05/14/25 Transmitted Breakfast Communication Order ORDERS 05/13/25 Transmitted 19:52 Date of Service: May 14, 2025 Billing Provider: ANDREI AWAD MD Common Visit Codes: [id number] INP/OBS CARE(HIGH) ANDREI AWAD MD May 14, 2025 10:49
--- NOTE | 2025-05-14 15:28 | DVHPN2 ---
Progress Note - Dictate Date Seen: May 14, 2025 Medical Necessity Reason Pt with a Central, PICC or Fol: Yes The following are medically ne: Central Line, [place]arez Catheter vital signs Vital Sign Date Time Temp Pulse Resp B/P (MAP) Pulse Ox O2 Delivery O2 Flow Rate FiO2 05/14/25 15:00 89 21 182/76 (111) 97 05/14/25 14:00 Nasal Cannula* 3 32 05/14/25 12:00 98.2 98.2 Total Intake and Output 05/13/25 05/13/25 05/14/25 15:00 23:00 07:00 Intake Total 576.93 ml 41.23 ml 79.6 ml Output Total 2050 ml 2600 ml Balance 576.93 ml -2008.77 ml -2520.4 ml medications Current Medications Medications Dose Ordered Sig/Jonathan Route Start Time Stop Time Status Last Admin Dose Admin Fentanyl Citrate 250 ml @ 2.5 mls/hr Q24H IV 05/10/25 21:00 05/12/25 10:09 10 MLS/HR Midazolam HCl 50 ml @ 1 mls/hr Q24H IV 05/10/25 22:00 05/13/25 03:22 5 MLS/HR Norepinephrine Bitartrate 250 ml @ 3.75 mls/hr Q24H IV 05/10/25 22:30 05/12/25 04:33 7.5 MLS/HR Famotidine 20 mg Q12HR IV 05/11/25 10:00 05/14/25 09:58 20 MG Ondansetron HCl 4 mg Q4HP PRN IV 05/10/25 22:30 Enoxaparin Sodium 40 mg DAILY SC 05/11/25 10:00 05/14/25 09:58 40 MG Acetaminophen 650 mg Q6HP PRN PO 05/10/25 22:30 Nitroglycerin 0.4 mg Q5MINP PRN SL 05/10/25 22:30 Morphine Sulfate 2 mg Q30M PRN IV 05/10/25 22:30 Methylprednisolone Sodium Succinate 60 mg Q6HR IV 05/11/25 13:45 05/14/25 12:09 60 MG Diagnostic Test (Pha) 1 strip Q6HR 05/12/25 12:00 05/14/25 12:20 1 STRIP Insulin Human Regular Q6HR SC 05/12/25 12:00 05/14/25 12:13 6 UNITS Dextrose 50 ml UD PRN IV 05/12/25 11:45 Levofloxacin 50 ml @ 50 mls/hr DAILY@1300 IV 05/13/25 13:00 05/14/25 12:26 50 MLS/HR Amlodipine Besylate 5 mg DAILY PO 05/13/25 18:30 05/14/25 09:58 5 MG laboratory and microbiology Laboratory Tests 05/14/25 03:39 Test 05/14/25 03:39 Range/Units Serum Glucose 162 H 74-106 mg/dL Assessment/Plan Acute hypoxic respiratory failure On mechanical ventilator Angioedema Shock events patient was successfully weaned from mechanical ventilation s/p extubation transitioned to 2 liters nasal cannula abg reviewed CXR reviewed Plan: supplemental oxygen titrate to maintain sats 90% or above incentive spirometry aspiration precautions swallow evaluation Continue steroids Continue benadryl and pepcid Monitor renal function Monitor electrolytes. Supplement as necessary. Monitor ins and outs. Maintain euvolemia. GI prophylaxis. DVT prophylaxis. crit care time 35 min Dietary Evaluation Review Comments: 1) If patient remains NPO > 7 days, consider EN/TPN to meet at least 75% of estimated daily needs 2) If GI is preferred, consider Glucerna 1.2 @ 50 mL goal rate as tolerated. Flush with 150 mL free H2O Q6H. TF regimen will provide 1440 kcals, 72g Pro, and 1566 mL free H2O (including TF flushes) per 24 hrs. Goal rate will meet ~ 94% estimated energy needs and 73% estimated protein needs. 3) Advance to 60g CCHO cardiac diet when medically feasible, pending ST approval 4) Follow-up with neurology, cardiology, and pulmonology 5) Continue to monitor I&O, labs, and skin integrity Expected Outcomes/Goals: 1) patient to receive nutrition support within 7 days of NPO status 2) labs to improve 3) diet to advance 4) f/u in 2-3 days Plan discussed with: Patient AMNA MORILLO MD May 14, 2025 15:28
--- NOTE | 2025-05-14 16:51 | DVHPN2 ---
Progress Note Date Seen: May 14, 2025 Medical Necessity Reason Pt with a Central, PICC or Fol: Yes The following are medically ne: Central Line, Nevarez Catheter Objective vital signs Vital Sign Date Time Temp Pulse Resp B/P (MAP) Pulse Ox O2 Delivery O2 Flow Rate FiO2 05/14/25 16:00 18 96 Nasal Cannula* 3 32 05/14/25 16:00 98.7 89 164/65 (98) 98.7 Total Intake and Output 05/13/25 05/13/25 05/14/25 15:00 23:00 07:00 Intake Total 576.93 ml 41.23 ml 79.6 ml Output Total 2050 ml 2600 ml Balance 576.93 ml -2008.77 ml -2520.4 ml medications Current Medications Medications Dose Ordered Sig/Jonathan Route Start Time Stop Time Status Last Admin Dose Admin Fentanyl Citrate 250 ml @ 2.5 mls/hr Q24H IV 05/10/25 21:00 05/12/25 10:09 10 MLS/HR Midazolam HCl 50 ml @ 1 mls/hr Q24H IV 05/10/25 22:00 05/13/25 03:22 5 MLS/HR Norepinephrine Bitartrate 250 ml @ 3.75 mls/hr Q24H IV 05/10/25 22:30 05/12/25 04:33 7.5 MLS/HR Famotidine 20 mg Q12HR IV 05/11/25 10:00 05/14/25 09:58 20 MG Ondansetron HCl 4 mg Q4HP PRN IV 05/10/25 22:30 Enoxaparin Sodium 40 mg DAILY SC 05/11/25 10:00 05/14/25 09:58 40 MG Acetaminophen 650 mg Q6HP PRN PO 05/10/25 22:30 Nitroglycerin 0.4 mg Q5MINP PRN SL 05/10/25 22:30 Morphine Sulfate 2 mg Q30M PRN IV 05/10/25 22:30 Methylprednisolone Sodium Succinate 60 mg Q6HR IV 05/11/25 13:45 05/14/25 12:09 60 MG Diagnostic Test (Pha) 1 strip Q6HR 05/12/25 12:00 05/14/25 12:20 1 STRIP Insulin Human Regular Q6HR SC 05/12/25 12:00 05/14/25 12:13 6 UNITS Dextrose 50 ml UD PRN IV 05/12/25 11:45 Levofloxacin 50 ml @ 50 mls/hr DAILY@1300 IV 05/13/25 13:00 05/14/25 12:26 50 MLS/HR Amlodipine Besylate 5 mg DAILY PO 05/13/25 18:30 05/14/25 09:58 5 MG Examination: GENERAL:Normal, CVS:Normal laboratory and microbiology Laboratory Tests 05/14/25 03:39 Test 05/14/25 03:39 Range/Units Serum Glucose 162 H 74-106 mg/dL Microbiology Date/Time Source Procedure Growth Status 05/12/25 09:30 Nose MRSA Screen - Final Complete 05/12/25 09:30 Urine - [place] Urine Culture - Final Escherichia coli - ESBL Complete 05/10/25 21:14 Sputum Gram Stain - Final Complete 05/10/25 21:14 Respiratory Culture - Final Klebsiella pneumoniae Complete Problem List/Assessment/Plan Problem List/Assessment/Plan 89-year-old female past medical history of hypertension and urinary tract infection developed a severe anaphylactic reaction to cephalosporin antibiotic which resulted in respiratory failure. Nephrology consulted for hyperkalemia Preserved renal function Hyperkalemia resolved Anaphylactic reaction Respiratory failure now extubated hypertension UTI Hyperkalemia has resolved DC IVF, ALICIA resolved pulm on case s/p IV steroids , facial swelling has improved Hold lisinopril home medication at this time , use norvasc increase to 10mg po daily ABX po for UTI as per ID will sign off case Plan discussed with: Patient My Orders My Orders Orders - EUSEBIO GOODEN MD Procedure Category Date Status Time Amlodipine Tablet PHA 05/13/25 In Process (Norvasc Tablet) 18:30 Dietary Evaluation Review Comments: 1) If patient remains NPO > 7 days, consider EN/TPN to meet at least 75% of estimated daily needs 2) If GI is preferred, consider Glucerna 1.2 @ 50 mL goal rate as tolerated. Flush with 150 mL free H2O Q6H. TF regimen will provide 1440 kcals, 72g Pro, and 1566 mL free H2O (including TF flushes) per 24 hrs. Goal rate will meet ~ 94% estimated energy needs and 73% estimated protein needs. 3) Advance to 60g CCHO cardiac diet when medically feasible, pending ST approval 4) Follow-up with neurology, cardiology, and pulmonology 5) Continue to monitor I&O, labs, and skin integrity Expected Outcomes/Goals: 1) patient to receive nutrition support within 7 days of NPO status 2) labs to improve 3) diet to advance 4) f/u in 2-3 days EUSEBIO GOODEN MD May 14, 2025 16:51
[2025-05-14] MEDS: hydrALAZINE HCL 20 MG/ML VL IV ONE (21:37)
[2025-05-14] MEDS: ONDANSETRON HCL 4 MG/2 ML VIAL IV PRN (23:37)
[2025-05-15] VITALS (12 sets, daily range): BP systolic 139–160; BP diastolic 53–78; PULSE 75–102; RESP 14–18; TEMP 97.6–98.5; O2SAT 0–98
[2025-05-15] MEDS: CARVEDILOL 3.125 MG TAB PO SCH (00:06)
--- NOTE | 2025-05-15 08:30 | DVH ---
INDICATION: vent TECHNIQUE: Frontal view of the chest. COMPARISON: XY CHEST PORTABLE on DOS: 05/14/25, XY CHEST PORTABLE on DOS: 05/13/25, XY CHEST PORTABLE on DOS: 05/12/25, XY CHEST XRAY 1 VIEW on DOS: 05/11/25, XY CHEST XRAY 1 VIEW on DOS: 05/10/25 FINDINGS: . The heart and mediastinal contours are grossly unremarkable. There is no evidence of pleural disea se. The lungs are clear. The bony structures of the chest are intact without fracture. IMPRESSION: 1. No evidence of acute disease.
--- NOTE | 2025-05-15 12:32 | DVHPN2 ---
Progress Note - Dictate Date Seen: May 15, 2025 Medical Necessity Reason Pt with a Central, PICC or Fol: Yes The following are medically ne: Central Line, Nevarez Catheter vital signs Vital Sign Date Time Temp Pulse Resp B/P (MAP) Pulse Ox O2 Delivery O2 Flow Rate FiO2 05/15/25 09:46 73 147/68 05/15/25 09:00 98.0 18 98 98.0 05/15/25 08:00 Nasal Cannula* 2 28 Total Intake and Output 05/14/25 05/14/25 05/15/25 15:00 23:00 07:00 Intake Total 50 ml 750 ml 0 ml Output Total 1050 ml 0 ml Balance 50 ml -300 ml 0 ml medications Current Medications Medications Dose Ordered Sig/Jonathan Route Start Time Stop Time Status Last Admin Dose Admin Fentanyl Citrate 250 ml @ 2.5 mls/hr Q24H IV 05/10/25 21:00 05/12/25 10:09 10 MLS/HR Midazolam HCl 50 ml @ 1 mls/hr Q24H IV 05/10/25 22:00 05/13/25 03:22 5 MLS/HR Norepinephrine Bitartrate 250 ml @ 3.75 mls/hr Q24H IV 05/10/25 22:30 05/12/25 04:33 7.5 MLS/HR Famotidine 20 mg Q12HR IV 05/11/25 10:00 05/15/25 08:45 20 MG Ondansetron HCl 4 mg Q4HP PRN IV 05/10/25 22:30 05/14/25 23:37 4 MG Enoxaparin Sodium 40 mg DAILY SC 05/11/25 10:00 05/15/25 08:45 40 MG Acetaminophen 650 mg Q6HP PRN PO 05/10/25 22:30 Nitroglycerin 0.4 mg Q5MINP PRN SL 05/10/25 22:30 Morphine Sulfate 2 mg Q30M PRN IV 05/10/25 22:30 Methylprednisolone Sodium Succinate 60 mg Q6HR IV 05/11/25 13:45 05/15/25 11:37 60 MG Diagnostic Test (Pha) 1 strip Q6HR 05/12/25 12:00 05/15/25 05:35 1 STRIP Insulin Human Regular Q6HR SC 05/12/25 12:00 05/15/25 11:42 6 UNITS Dextrose 50 ml UD PRN IV 05/12/25 11:45 Levofloxacin 50 ml @ 50 mls/hr DAILY@1300 IV 05/13/25 13:00 05/14/25 12:26 50 MLS/HR Amlodipine Besylate 10 mg DAILY PO 05/15/25 10:00 05/15/25 08:46 10 MG Carvedilol 6.25 mg Q12HR PO 05/14/25 23:15 05/15/25 08:46 6.25 MG laboratory and microbiology Laboratory Tests 05/14/25 03:39 Test 05/14/25 03:39 Range/Units Serum Glucose 162 H 74-106 mg/dL Assessment/Plan Acute hypoxic respiratory failure On mechanical ventilator Angioedema Shock events s/p extubation nasal cannula d/graded abg reviewed CXR reviewed Plan: supplemental oxygen titrate to maintain sats 90% or above incentive spirometry diet as tolerated Continue steroids Continue benadryl and pepcid Monitor renal function Monitor electrolytes. Supplement as necessary. Monitor ins and outs. Maintain euvolemia. GI prophylaxis. DVT prophylaxis. Dietary Evaluation Review Comments: 1) If patient remains NPO > 7 days, consider EN/TPN to meet at least 75% of estimated daily needs 2) If GI is preferred, consider Glucerna 1.2 @ 50 mL goal rate as tolerated. Flush with 150 mL free H2O Q6H. TF regimen will provide 1440 kcals, 72g Pro, and 1566 mL free H2O (including TF flushes) per 24 hrs. Goal rate will meet ~ 94% estimated energy needs and 73% estimated protein needs. 3) Advance to 60g CCHO cardiac diet when medically feasible, pending ST approval 4) Follow-up with neurology, cardiology, and pulmonology 5) Continue to monitor I&O, labs, and skin integrity Expected Outcomes/Goals: 1) patient to receive nutrition support within 7 days of NPO status 2) labs to improve 3) diet to advance 4) f/u in 2-3 days Plan discussed with: Patient AMNA MORILLO MD May 15, 2025 12:32
[2025-05-15] MEDS ORDERED: ERTAPENEM SOD INJ 1 GM in SODIUM CHL 0.9% 50 ML IV ONE (12:45)
[2025-05-15] MEDS: ERTAPENEM SOD INJ 1 GM in SODIUM CHL 0.9% 50 ML IV ONE (13:23)
--- NOTE | 2025-05-15 16:09 | DVHPN2 ---
Subjective Overnight events noted. This patient was admitted for anaphylactic shock secondary to severe drug allergic reaction to Ceftin. Patient and patient's family member said that she has tolerated penicillin /cephalosporin in the past without any allergic reaction. Patient was seen and evaluated by me, urine culture came back with a ESBL, started on in once, discontinue Levaquin. Changes from previous H/P or p: No Changes Objective Vitals Vital Signs Date Time Temp Pulse Resp B/P (MAP) Pulse Ox O2 Delivery O2 Flow Rate FiO2 05/15/25 13:00 97.8 79 16 140/69 (92) 98 97.8 05/15/25 08:00 Nasal Cannula* 2 28 Intake/Output Intake and Output 05/15/25 07:00 Intake Total 800 ml Output Total 1050 ml Balance -250 ml Intake Oral 750 ml IV Total 50 ml Output Urine Total 1050 ml Exam HEENT pupils are reactive Neck is supple CV is S1-S2 regular rate and rhythm Diminished breath sounds bilateral lung bases GI positive bowel sound Extremity no edema [employer] no motor deficit Medications Current Medications Medications Dose Ordered Sig/Jonathan Route Start Time Stop Time Status Last Admin Dose Admin Famotidine 20 mg Q12HR IV 05/11/25 10:00 05/15/25 08:45 20 MG Ondansetron HCl 4 mg Q4HP PRN IV 05/10/25 22:30 05/14/25 23:37 4 MG Enoxaparin Sodium 40 mg DAILY SC 05/11/25 10:00 05/15/25 08:45 40 MG Acetaminophen 650 mg Q6HP PRN PO 05/10/25 22:30 Nitroglycerin 0.4 mg Q5MINP PRN SL 05/10/25 22:30 Morphine Sulfate 2 mg Q30M PRN IV 05/10/25 22:30 Diagnostic Test (Pha) 1 strip Q6HR 05/12/25 12:00 05/15/25 11:30 1 STRIP Insulin Human Regular Q6HR SC 05/12/25 12:00 05/15/25 11:42 6 UNITS Dextrose 50 ml UD PRN IV 05/12/25 11:45 Amlodipine Besylate 10 mg DAILY PO 05/15/25 10:00 05/15/25 08:46 10 MG Carvedilol 6.25 mg Q12HR PO 05/14/25 23:15 05/15/25 08:46 6.25 MG Ertapenem 1 gm/ Sodium Chloride 50 ml @ 100 mls/hr DAILY IV 05/16/25 10:00 Cancel Ertapenem 1 gm/ Sodium Chloride 50 ml @ 100 mls/hr DAILY IV 05/16/25 10:00 Prednisone 40 mg DAILY PO 05/16/25 10:00 Laboratory Results Laboratory Tests 05/14/25 03:39 Urinalysis Test 05/10/25 23:30 Urine Color Colorless (Yellow) Urine Clarity Turbid (Clear) H Urine pH 5.5 (5.0-9.0) Urine Specific [place] 1.014 (1.001-1.035) Urine Protein Trace (Negative) H Urine Ketones Trace (Negative) Urine Blood Negative /uL (Negative) Urine Nitrite Negative (Negative) Urine Bilirubin Negative (Negative) Urine Urobilinogen Normal mg/dL (Negative) Urine Leukocyte Esterase 3+ /uL (Negative) Urine RBC None seen /hpf (0 - 4) Urine WBC Clumps Present /hpf (None Seen) Urine Microscopic WBC 288 /HPF (0-5) H Urine Squamous Epithelial Cells None seen /hpf (<5) Urine Bacteria Few /hpf (None Seen) H Urine Glucose Normal mg/dL (Normal) Microbiology Microbiology Date/Time Source Procedure Growth Status 05/12/25 09:30 Nose MRSA Screen - Final Complete 05/12/25 09:30 Urine - [place] Urine Culture - Final Escherichia coli - ESBL Complete 05/10/25 21:14 Sputum Gram Stain - Final Complete 05/10/25 21:14 Respiratory Culture - Final Klebsiella pneumoniae Complete Assessment/Plan Assessment/Plan 89-year-old female with a known history of diabetes mellitus type 2, hypertension, dyslipidemia, recently treated for UTI with the Bactrim for seven days, started having symptoms of dysuria was given Ceftin antibiotic by the PCP developed anaphylactic allergic reaction eventually was brought in by paramedics status post intubation in the ER, patient is currently status post extubation on05/13. 1. Anaphylactic shock secondary to drug allergic reaction status post intubation, status post extubation 2. Acute hypoxic respiratory failure secondary to anaphylactic shock status post intubation, extubation on05/13, currently on nasal cannula for O2 supplementation 3. ESBL UTI, discontinue Levaquin start in once 4. Diabetes mellitus type 2 5. Hypertension 6. Dyslipidemia -get a midline, Infectious Disease consultation, arrange in was 1 g IV daily for one week. -continue O2 supplementation by nasal cannula, PT evaluation and treatment, continue-antibiotics Plan of care discussed with the patient and patient's bedside RN as well as patient's family members at bedside. Plan discussed with: Patient, Daughter My Orders Orders - ANDREI AWAD MD Procedure Category Date Status Time * Infectious [place]- CONS 05/15/25 Transmitted Leora Sanchez 12:36 Ertapenem Sod Inj PHA 05/16/25 In Process (Invanz) 10:00 Insert Midline ORDERS 05/15/25 Transmitted 13:12 Prednisone Tablet PHA 05/16/25 In Process 10:00 Date of Service: May 15, 2025 Billing Provider: ANDREI AWAD MD Common Visit Codes: [id number] INP/OBS CARE(MOD) ANDREI AWAD MD May 15, 2025 16:09
[2025-05-16 01:00] VITALS: BP 148/60; PULSE 62; RESP 17; TEMP 97.9; O2SAT 97
[2025-05-16 04:58] VITALS: TEMP 98
[2025-05-16 07:42] LABS: Anion Gap 10 (5-15); Carbon Dioxide 30 mmol/L (20-31); Chloride 99 mmol/L (98-107); Sodium 139 mmol/L (136-145)
[2025-05-16 07:44] LABS: Calcium 9.0 mg/dL (8.7-10.4)
[2025-05-16 07:48] LABS: BUN/Creatinine Ratio 33.3 (10.0-20.0); Blood Urea Nitrogen 23 mg/dL (9-23)
[2025-05-16 07:50] LABS: Glucose 112 mg/dL (74-106); Potassium 3.2 mmol/L (3.5-5.1)
--- NOTE | 2025-05-16 08:34 | DVH ---
CHEST RADIOGRAPH Indication: vent Technique: Single frontal view of the chest was obtained Comparison: XY CHEST PORTABLE on DOS: 05/15/25 FINDINGS: Lines and Tubes: None Lungs: No focal consolidation. Pleura: No effusion. No pneumothorax. Cardiomediastinal contours: Unremarkable Bones: No acute osseous abnormality. IMPRESSION: 1. No acute cardiopulmonary disease.
[2025-05-16 08:54] VITALS: BP 157/73; PULSE 73; RESP 17; TEMP 97; O2SAT 99
[2025-05-16] MEDS ORDERED: ERTAPENEM SOD INJ 1 GM in SODIUM CHL 0.9% 50 ML IV SCH (10:00)
[2025-05-16] MEDS: predniSONE 20 MG TAB PO SCH (10:47)
[2025-05-16] MEDS: ERTAPENEM SOD INJ 1 GM in SODIUM CHL 0.9% 50 ML IV SCH (10:54)
[2025-05-16] MEDS: POTASSIUM CHL 20 Meq TABLET PO ONE (12:48)
[2025-05-16] MEDS ORDERED: PRED20TA2 PO (13:24)
[2025-05-16] MEDS ORDERED: AML5T PO (13:24)
[2025-05-16] MEDS ORDERED: EPIN0.1I11 IJ (13:24)
[2025-05-16] MEDS ORDERED: FAMO20TA10 PO (13:24)
[2025-05-16] MEDS ORDERED: CARV6.2517 PO (13:24)
--- NOTE | 2025-05-16 13:28 | DVHDS2 ---
Discharge Summary Date of Admission May 10, 2025 at 22:28 Date of Discharge: May 16, 2025 Labs/Diagnostic Data: Laboratory Results Test 05/16/25 11:17 05/16/25 07:06 05/14/25 03:39 05/13/25 11:26 POC Glucose 149 mg/dl (70-106) Sodium Level 139 mmol/L (136-145) Potassium Level 3.2 mmol/L (3.5-5.1) Chloride Level 99 mmol/L (98-107) Carbon Dioxide Level 30 mmol/L (20-31) Anion Gap 10 (5-15) Blood Urea Nitrogen 23 mg/dL (9-23) Creatinine 0.69 mg/dL (0.550-1.02) Glomerular Filtration Rate Calc 83 mL/min (>90) BUN/Creatinine Ratio 33.3 (10.0-20.0) Serum Glucose 112 mg/dL (74-106) Calcium Level 9.0 mg/dL (8.7-10.4) White Blood Count 7.9 10^3/uL (4.4-10.8) Red Blood Count 3.63 10^6/uL (4.0-5.20) Hemoglobin 11.2 g/dL (12.2-16.2) Hematocrit 32.2 % (36.0-46.0) Mean Corpuscular Volume 88.7 fL (80.0-100.0) Mean Corpuscular Hemoglobin 30.9 pg (28.0-32.0) Mean Corpuscular Hemoglobin Concent 34.8 g/dL (32.0-36.0) Red Cell Distribution Width 14.9 % (11.8-14.3) Platelet Count 195 10^3/uL (140-450) Mean Platelet Volume 7.4 fL (6.9-10.8) Neutrophils (%) (Auto) 85.2 % (37.0-80.0) Lymphocytes (%) (Auto) 10.1 % (10.0-50.0) Monocytes (%) (Auto) 4.6 % (0.0-12.0) Eosinophils (%) (Auto) 0.0 % (0.0-7.0) Basophils (%) (Auto) 0.1 % (0.0-2.0) Neutrophils # (Auto) 6.7 10 ^3/uL (1.6-8.6) Lymphocytes # (Auto) 0.8 10 ^3/uL (0.4-5.4) Monocytes # (Auto) 0.4 10 ^3/uL (0-1.3) Eosinophils # (Auto) 0 10 ^3/uL (0-0.8) Basophils # (Auto) 0 10 ^3/uL (0-0.2) Nucleated Red Blood Cells 0.0 % Total Bilirubin 0.5 mg/dL (0.2-1.0) Aspartate Amino Transferase (AST) 33 U/L (13-40) Alanine Aminotransferase (ALT) 29 U/L (7-40) Alkaline Phosphatase 40 U/L (46-116) Total Protein 6.2 g/dL (5.7-8.2) Albumin 4.4 g/dL (3.2-4.8) Blood Gas Specimen Type Arterial Blood Gas Sample Site Right radial Blood Gas Patient Temperature 37.0 Arterial Blood Date Drawn [id number] Arterial Blood pH 7.447 (7.350-7.450) Arterial Blood Partial Pressure CO2 30.1 mmHg (32.0-45.0) Arterial Blood Partial Pressure O2 78.2 mmHg (83.0-108.0) Arterial Blood HCO3 20.3 mmol/L (21.0-28.0) Arterial Blood Oxygen Saturation 94.8 % (94.0-98.0) Arterial Blood Base Excess -2.9 mmol/L (-2.0-3.0) Arterial Blood Oxyhemoglobin 94.4 % (94.0-98.0) Arterial Blood Carboxyhemoglobin 0.1 % (0.5-1.5) Arterial Blood Methemoglobin 0.3 % (0.0-1.5) [place]on Test Yes Blood Gas Total Hemoglobin 11.00 g/dL (12.0-16.0) Blood Gas Modality Vent - cpap Blood Gas Spontaneous Rate 10 FiO2 % 30.0 Blood Gas Spontaneous Tidal Volume 670 Blood Gas Pressure Support 8 Blood Gas PEEP or CPAP 5.0 Test 05/12/25 07:03 05/11/25 03:40 05/10/25 23:30 05/10/25 20:29 Blood Gas Set Respiration Rate 20.0 Blood Gas Tidal Volume 400.0 Blood Gas Critical Value Read Back Yes Blood Gas Notified Whom giuseppe Bhagat md Blood Gas Notified Time [id number] Blood Gas Notified By Heading Machine Operator luis felipe zavala Urine Color Colorless (Yellow) Urine Clarity Turbid (Clear) Urine pH 5.5 (5.0-9.0) Urine Specific [place] 1.014 (1.001-1.035) Urine Protein Trace (Negative) Urine Ketones Trace (Negative) Urine Blood Negative /uL (Negative) Urine Nitrite Negative (Negative) Urine Bilirubin Negative (Negative) Urine Urobilinogen Normal mg/dL (Negative) Urine Leukocyte Esterase 3+ /uL (Negative) Urine RBC None seen /hpf (0 - 4) Urine WBC Clumps Present /hpf (None Seen) Urine Microscopic WBC 288 /HPF (0-5) Urine Squamous Epithelial Cells None seen /hpf (<5) Urine Bacteria Few /hpf (None Seen) Urine Glucose Normal mg/dL (Normal) Differential Total Cells Counted 100.0 (100) Neutrophils % (Manual) 30 (37.0-80.0) Band Neutrophils % (Manual) 1 Lymphocytes % (Manual) 60 (10.0-50.0) Monocytes % (Manual) 9 (0-12) Eosinophils % (Manual) 0 (0-7) Basophils % (Manual) 0 (0.0-2.0) Metamyelocytes % (manual) 0 Myelocytes % (Manual) 0 Promyelocytes % (Manual) 0 Blast Cells % (Manual) 0 Reactive Lymphocytes 0 Platelet Estimate Adequate Red Blood Cell Morphology Normal Hemoglobin A1c 7.3 % A1C (<5.7) B-Type Natriuretic Peptide 18.11 pg/mL (0-100) Other Laboratory Tests 05/16/25 07:06 05/14/25 03:39 Brief Hx & Hospital Course: 89-year-old female with a known history of diabetes mellitus type 2, hypertension, dyslipidemia, recently treated for UTI with the Bactrim for seven days, started having symptoms of dysuria again, was given Ceftin antibiotic by the PCP developed anaphylactic allergic reaction eventually was brought in by paramedics status post intubation in the ER. Patient was admitted to ICU was on mechanical ventilation for couple of days. Eventually patient was extubated successfully. Patient was downgraded to floor. Patient was found to have ESBL UTI which was treated with the IV in wants which will be arranged for home. Patient will be given prednisone and Pepcid for three more days as well as blood pressure medication as prescribed. Patient and her daughter requesting EpiPen as patient's has anaphylaxis to cephalosporins. EpiPen as well as other medications has been prescribed. Patient will be discharged to home with the home health home IV antibiotics once arranged. Condition at Discharge: Stable Final Diagnosis/Problems List 89-year-old female with a known history of diabetes mellitus type 2, hypertension, dyslipidemia, recently treated for UTI with the Bactrim for seven days, started having symptoms of dysuria was given Ceftin antibiotic by the PCP developed anaphylactic allergic reaction eventually was brought in by paramedics status post intubation in the ER, patient is currently status post extubation on05/13. 1. Anaphylactic shock secondary to drug allergic reaction status post intubation, status post extubation 2. Acute hypoxic respiratory failure secondary to anaphylactic shock status post intubation, extubation on05/13, currently on nasal cannula for O2 supplementation 3. ESBL UTI, discontinue Levaquin start in once 4. Diabetes mellitus type 2 5. Hypertension 6. Dyslipidemia Discharge Disposition: Home with Health Services SNF Discharge Will this Physician continue t: No Discharge Instruct/Medications Diet: Cardiac 2g Na,low cholest Diet comment: 1800 ADA diet Activity: No Restrictions, As Tolerated Follow Up/Referral: Follow up with the PCP in one week Medications: As prescribed and reconciled. New Medications: Carvedilol (Coreg) 6.25 Mg Tab 1 TAB PO BID, #60 TAB 5 Refills Epinephrine (Anaphylaxis) (Auvi-Q) 0.1 Mg/0.1 Ml Inj 0.1 MG IJ O PRN for 1 Day, #1 INJ Famotidine (Pepcid Tablet) 20 Mg Tb 1 TAB PO BID for 3 Days, #6 TAB 5 Refills Prednisone (Prednisone) 20 Mg Tab 20 MG PO DAILY for 3 Days, #3 MG Amlodipine Besylate (Norvasc Tablet) 5 Mg Tb 10 MG PO DAILY for 30 Days, #60 TAB Continued Medications: Ascorbic Acid (Vitamin C Tablet) 500 Mg Tb 1 TAB PO DAILY, #30 TAB 3 Refills Aspirin (Aspir-Low) 81 Mg Tab 81 MG PO DAILY for 30 Days, MG Cholecalciferol (Vitamin D3) 2,000 Unit Tab 1 TAB PO DAILY, #30 TAB 5 Refills Cyanocobalamin (Vitamin B12) 100 Mcg Tab 100 MCG PO, TAB Lisinopril (Lisinopril) 2.5 Mg Tab Metformin Hydrochloride (Metformin Hcl) 1,000 Mg Tab Multiple Vitamins W/ Minerals (Multivitamin) Liq 1 OR, LIQ Simvastatin (Zocor) 40 Mg Tab 1 TAB PO DAILY, #90 TAB 1 Refill Scheduled Amlodipine Besylate (Norvasc Tablet), 10 MG PO DAILY Ascorbic Acid (Vitamin C Tablet), 1 TAB PO DAILY, (Reported) Aspirin (Aspir-Low), 81 MG PO DAILY, (Reported) Carvedilol (Coreg), 1 TAB PO BID Cholecalciferol (Vitamin D3), 1 TAB PO DAILY, (Reported) Famotidine (Pepcid Tablet), 1 TAB PO BID Prednisone (Prednisone), 20 MG PO DAILY Simvastatin (Zocor), 1 TAB PO DAILY, (Reported) Scheduled PRN Epinephrine (Anaphylaxis) (Auvi-Q), 0.1 MG IJ O PRN Miscellaneous Medications Cyanocobalamin (Vitamin B12), 100 MCG PO, (Reported) Lisinopril (Lisinopril), (Reported) Metformin Hydrochloride (Metformin Hcl), (Reported) Multiple Vitamins W/ Minerals (Multivitamin), 1 OR, (Reported) Discharge Statement: "Patient was advised to return to the ER or call 911 if any headaches, dizziness, shortness of breath, chest pain, abdominal pain, bleeding, fevers, or worsening of medical condition. Patient was counseled about treatment plan, medications, possible side effects, patientverbalized understanding. All questions were answered to the best of my ability. This discharge took greater then 30 minutes in planning, reviewing documentation, counseling the patient, and discussing with other team members." ASSESSMENT ASSESSMENT Assessment 89-year-old female with a known history of diabetes mellitus type 2, hypertension, dyslipidemia, recently treated for UTI with the Bactrim for seven days, started having symptoms of dysuria was given Ceftin antibiotic by the PCP developed anaphylactic allergic reaction eventually was brought in by paramedics status post intubation in the ER, patient is currently status post extubation on05/13. 1. Anaphylactic shock secondary to drug allergic reaction status post intubation, status post extubation 2. Acute hypoxic respiratory failure secondary to anaphylactic shock status post intubation, extubation on05/13, currently on nasal cannula for O2 supplementation 3. ESBL UTI, discontinue Levaquin start in once 4. Diabetes mellitus type 2 5. Hypertension 6. Dyslipidemia Date of Service: May 16, 2025 Billing Provider: ANDREI AWAD MD Common Visit Codes: 91843-GTL/OBS DISCH DAY >30min ANDREI AWAD MD May 16, 2025 13:28
[2025-05-16 13:39] VITALS: BP 160/84; PULSE 69; RESP 17; TEMP 98.4; O2SAT 97
[2025-05-16 17:26] VITALS: BP 120/75; PULSE 80; RESP 18; TEMP 98.5; O2SAT 91
--- NOTE | 2025-05-16 17:58 | DVHPN2 ---
Progress Note - Dictate Date Seen: May 16, 2025 Medical Necessity Reason Pt with a Central, PICC or Fol: Yes The following are medically ne: Central Line, [place]arez Catheter vital signs Vital Sign Date Time Temp Pulse Resp B/P (MAP) Pulse Ox O2 Delivery O2 Flow Rate FiO2 05/16/25 17:26 98.5 80 18 120/75 (90) 91 98.5 05/16/25 07:30 Nasal Cannula* 2 28 Total Intake and Output 05/15/25 05/15/25 05/16/25 15:00 23:00 07:00 Intake Total 918 ml 1078 ml 800 ml Output Total 676 ml 1802 ml Balance 918 ml 402 ml -1002 ml medications Current Medications Medications Dose Ordered Sig/Ojnathan Route Start Time Stop Time Status Last Admin Dose Admin Ondansetron HCl 4 mg Q4HP PRN IV 05/10/25 22:30 05/14/25 23:37 4 MG Enoxaparin Sodium 40 mg DAILY SC 05/11/25 10:00 05/16/25 10:49 40 MG Acetaminophen 650 mg Q6HP PRN PO 05/10/25 22:30 Nitroglycerin 0.4 mg Q5MINP PRN SL 05/10/25 22:30 Morphine Sulfate 2 mg Q30M PRN IV 05/10/25 22:30 Diagnostic Test (Pha) 1 strip Q6HR 05/12/25 12:00 05/16/25 12:54 1 STRIP Insulin Human Regular Q6HR SC 05/12/25 12:00 05/16/25 12:53 2 UNITS Dextrose 50 ml UD PRN IV 05/12/25 11:45 Amlodipine Besylate 10 mg DAILY PO 05/15/25 10:00 05/16/25 10:48 10 MG Carvedilol 6.25 mg Q12HR PO 05/14/25 23:15 05/16/25 10:47 6.25 MG Ertapenem 1 gm/ Sodium Chloride 50 ml @ 100 mls/hr DAILY IV 05/16/25 10:00 Cancel Ertapenem 1 gm/ Sodium Chloride 50 ml @ 100 mls/hr DAILY IV 05/16/25 10:00 05/16/25 10:54 100 MLS/HR Prednisone 40 mg DAILY PO 05/16/25 10:00 05/16/25 10:47 40 MG Famotidine 20 mg DAILY IV 05/17/25 10:00 laboratory and microbiology Laboratory Tests 05/16/25 07:06 05/14/25 03:39 Test 05/16/25 07:06 Range/Units Serum Glucose 112 H 74-106 mg/dL Assessment/Plan Acute hypoxic respiratory failure On mechanical ventilator Angioedema Shock events s/p extubation nasal cannula d/graded Plan: supplemental oxygen titrate to maintain sats 90% or above incentive spirometry diet as tolerated Continue steroids Continue benadryl and pepcid Monitor renal function Monitor electrolytes. Supplement as necessary. Monitor ins and outs. Maintain euvolemia. GI prophylaxis. DVT prophylaxis. Dietary Evaluation Review Comments: 1) If patient remains NPO > 7 days, consider EN/TPN to meet at least 75% of estimated daily needs 2) If GI is preferred, consider Glucerna 1.2 @ 50 mL goal rate as tolerated. Flush with 150 mL free H2O Q6H. TF regimen will provide 1440 kcals, 72g Pro, and 1566 mL free H2O (including TF flushes) per 24 hrs. Goal rate will meet ~ 94% estimated energy needs and 73% estimated protein needs. 3) Advance to 60g CCHO cardiac diet when medically feasible, pending ST approval 4) Follow-up with neurology, cardiology, and pulmonology 5) Continue to monitor I&O, labs, and skin integrity Expected Outcomes/Goals: 1) patient to receive nutrition support within 7 days of NPO status 2) labs to improve 3) diet to advance 4) f/u in 2-3 days Plan discussed with: Patient AMNA MORILLO MD May 16, 2025 17:58
[2025-05-17] MEDS ORDERED: FAMOTIDINE (10MG/ML) 2ML VL IV SCH (10:00)
--- NOTE | 2025-05-17 16:31 | DVHPN2 ---
Progress Note - Dictate Date Seen: May 17, 2025 Medical Necessity Reason Pt with a Central, PICC or Fol: No vital signs Vital Sign Date Time Temp Pulse Resp B/P (MAP) Pulse Ox O2 Delivery O2 Flow Rate FiO2 05/16/25 17:26 98.5 80 18 120/75 (90) 91 98.5 05/16/25 07:30 Nasal Cannula* 2 28 Total Intake and Output 05/16/25 05/16/25 05/17/25 15:00 23:00 07:00 Intake Total 50 ml Balance 50 ml medications Current Medications Medications Dose Ordered Sig/Jonathan Route Start Time Stop Time Status Last Admin Dose Admin Ertapenem 1 gm/ Sodium Chloride 50 ml @ 100 mls/hr DAILY IV 05/16/25 10:00 Cancel laboratory and microbiology Laboratory Tests 05/16/25 07:06 05/14/25 03:39 Test 05/16/25 07:06 Range/Units Serum Glucose 112 H 74-106 mg/dL Assessment/Plan Acute hypoxic respiratory failure On mechanical ventilator Angioedema Shock events s/p extubation low oxygen requirements on 2 liters nasal cannula no acute events Plan: supplemental oxygen titrate to maintain sats 90% or above incentive spirometry diet as tolerated Continue steroids recommend ID input for recurrent pneumonia Monitor renal function Monitor electrolytes. Supplement as necessary. Monitor ins and outs. Maintain euvolemia. GI prophylaxis. DVT prophylaxis. Dietary Evaluation Review Comments: 1) If patient remains NPO > 7 days, consider EN/TPN to meet at least 75% of estimated daily needs 2) If GI is preferred, consider Glucerna 1.2 @ 50 mL goal rate as tolerated. Flush with 150 mL free H2O Q6H. TF regimen will provide 1440 kcals, 72g Pro, and 1566 mL free H2O (including TF flushes) per 24 hrs. Goal rate will meet ~ 94% estimated energy needs and 73% estimated protein needs. 3) Advance to 60g CCHO cardiac diet when medically feasible, pending ST approval 4) Follow-up with neurology, cardiology, and pulmonology 5) Continue to monitor I&O, labs, and skin integrity Expected Outcomes/Goals: 1) patient to receive nutrition support within 7 days of NPO status 2) labs to improve 3) diet to advance 4) f/u in 2-3 days Plan discussed with: Patient AMNA MORILLO MD May 17, 2025 16:31
== END 2025-05-16 17:57 | disposition home health service (06) | DRG 915 ==
LOC: ER 19:49 → EDBD 19:49 → OVERFLOW 22:28 → ICU WEST 05-11 23:03 → TELE-WESTW 05-15 01:30 → TELE-CENTR 05-15 20:16 → CENTRAL 05-16 03:26
PROVIDERS: ADMIT Hospitalist; ATTEND Hospitalist
PROC: 5A1945Z Respiratory Ventilation, 24-96 Consecutive Hours (ICD-10-PCS; principal; 2025-05-10)
PROC: 0BH17EZ Insertion of Endotracheal Airway into Trachea, Via Natural or Artificial Opening (ICD-10-PCS; 2025-05-10)
PROC: 05HM33Z Insertion of Infusion Device into Right Internal Jugular Vein, Percutaneous Approach (ICD-10-PCS; 2025-05-10)
PROC: 05HA33Z Insertion of Infusion Device into Left Brachial Vein, Percutaneous Approach (ICD-10-PCS; 2025-05-15)
PROC: B54NZZA Ultrasonography of Left Upper Extremity Veins, Guidance (ICD-10-PCS; 2025-05-15)
DX: T88.6XXA Anaphylactic reaction due to adverse effect of correct drug or medicament properly administered, initial encounter (principal); J96.01 Acute respiratory failure with hypoxia; J90 Pleural effusion, not elsewhere classified; E87.20 Acidosis, unspecified; N39.0 Urinary tract infection, site not specified; Z16.12 Extended spectrum beta lactamase (ESBL) resistance; J98.11 Atelectasis; E11.65 Type 2 diabetes mellitus with hyperglycemia; I11.9 Hypertensive heart disease without heart failure; E78.5 Hyperlipidemia, unspecified; T78.3XXA Angioneurotic edema, initial encounter; T36.1X5A Adverse effect of cephalosporins and other beta-lactam antibiotics, initial encounter; E87.5 Hyperkalemia; B96.1 Klebsiella pneumoniae [K. pneumoniae] as the cause of diseases classified elsewhere; Z83.3 Family history of diabetes mellitus; Z88.8 Allergy status to other drugs, medicaments and biological substances; Z88.1 Allergy status to other antibiotic agents; Z82.3 Family history of stroke; Y92.89 Other specified places as the place of occurrence of the external cause
CPT/HCPCS: 31500; 36415; 36556; 36600; 71045; 80048; 80053; 81001; 82805; 82962; 83036; 83880; 84132; 85007; 85025; 85027; 87070; 87077; 87081; 87086; 87088; 87186; 87205; 93306; 94002; 94003; 94640; 96372; 96374; 97163; 99291; 99292; G0378; J0169; J1100; J1335; J1815; J1956; J2405; J2704; J3490